=== PATIENT | male | born 1970 | race Two or more races ===

== ENCOUNTER 2017-01-03 11:49 | Day surgery (SDC) | payer OTHER ==
[2017-01-01 12:43] VITALS: BMI 30.1
[2017-01-03 13:03] VITALS: TEMP 98
[2017-01-03] MEDS ORDERED: PROPOFOL 20 ML ONE (14:49)
[2017-01-03] MEDS ORDERED: LIDOCAINE HCL/PF 2% SDV 5ML VIAL ONE (14:49)
[2017-01-03] MEDS ORDERED: MIDAZOLAM HCL 2 MG/2 ML SINGLE DOSE VIAL ONE (14:49)
[2017-01-03] MEDS ORDERED: LEVOFLOXACIN 500 MG IVPB 100 ML IVPB ONE (14:54)
[2017-01-03] MEDS ORDERED: LEVOFLOXACIN 500 MG PREMIX BAG IVPB ONE (14:55)
[2017-01-03] MEDS ORDERED: ONDANSETRON 4 MG/2 ML VIAL IVPUSH PRN (15:15)
[2017-01-03] MEDS ORDERED: LACTATED RINGERS SOLUTION 1,000 ML IV SCH (15:15)
[2017-01-03] MEDS ORDERED: oxyCODONE HCL 5 MG TABLET PO PRN (15:15)
--- NOTE | 2017-01-03 15:42 | OP ---
Operative Note - Note: Operative Date: 01/03/17 Pre-Operative Diagnosis: Urethral Stricture Operation: Cysto internal urethrotomy ,cystogram and gage catheterization Findings: Severe urethral stricture Post-Operative Diagnosis: Same as Pre-op Surgeon: Elayne Fowler Anesthesia: General Drains & Tubes with Location: 18 F Gage Catheter
[2017-01-03] MEDS ORDERED: oxyCODONE HCL 5 MG TABLET ONE (17:12)
[2017-01-03 17:49] VITALS: BP 125/79; PULSE 72
--- NOTE | 2017-01-04 12:16 | OP ---
DATE OF OPERATION: 01/03/2017 SURGEON: Elayne oFwler MD ANESTHESIA: General. PREOPERATIVE DIAGNOSIS: Urethral stricture. POSTOPERATIVE DIAGNOSIS: Urethral stricture. PROCEDURE: Cystoscopy, internal urethrotomy, urethral dilatation, cystogram, and Plasencia catheterization. FINDINGS: Severe stricture of the anterior urethra noted. Bladder essentially normal. DESCRIPTION OF PROCEDURE: Patient in lithotomy position under anesthesia, was prepped and draped in the usual manner. Using a 22 scope, cystoscopy was attempted, but because of the severity of the stricture, could not be performed. Then with considerable difficulty, a guidewire was placed, passed the stricture into the bladder. This was confirmed with x-ray. The urethrotome was used, and stricture was cut using the blade over the guidewire, and finally the urethrotome was introduced into the bladder. Then the instrument was removed. Using the Penny catheter, the stricture was dilated up to 22-[place] in size. Then again with considerable difficulty, an 18 Plasencia was left indwelling. The position was confirmed with x-ray. The patient tolerated the procedure well and left the operating room in a satisfactory condition. ELAYNE FOWLER M.D. [id number]
== END 2017-01-03 17:49 | disposition home or self-care (01) ==
LOC: JASU-SURG 11:49
PROVIDERS: ATTEND Urology
PROC: BT1BZZZ Fluoroscopy of Bladder and Urethra (ICD-10-PCS; 2017-01-03)
PROC: 0T7D8ZZ Dilation of Urethra, Via Natural or Artificial Opening Endoscopic (ICD-10-PCS; 2017-01-03)
PROC: 0TND8ZZ Release Urethra, Via Natural or Artificial Opening Endoscopic (ICD-10-PCS; principal; 2017-01-03 14:00)
DX: N35.9 Urethral stricture, unspecified (principal)
CPT/HCPCS: 76000-TC; 94760

== ENCOUNTER 2019-03-31 10:38 | Inpatient (IN) | payer OTHER ==
[2019-03-28 09:46] VITALS: BMI 24.7
[2019-03-31] MEDS ORDERED: PROPOFOL 20 ML ONE ×3 (11:00→14:07)
[2019-03-31] MEDS ORDERED: MIDAZOLAM HCL 2 MG/2 ML SINGLE DOSE VIAL ONE ×2 (11:00→13:50)
[2019-03-31] MEDS ORDERED: LIDOCAINE HCL 2% JELLY 10 ML CARTRIDGE ONE (12:35)
[2019-03-31] MEDS ORDERED: LIDOCAINE HCL/PF 2% SDV 5ML VIAL ONE (13:50)
[2019-03-31] MEDS ORDERED: CLINDAMYCIN 600 MG PREMIX BAG IVPB ONE (14:08)
[2019-03-31] MEDS ORDERED: KETOROLAC TROMETHAMINE 30 MG/1 ML VIAL ONE (14:16)
[2019-03-31] MEDS ORDERED: IOHEXOL 300 MG/ML INFUS..BTL IJ ONE ×2 (14:45→14:48)
[2019-03-31] MEDS: DEXTROSE 5%-0.45% SALINE 1,000 ML IV SCH ×2 (15:10→16:55)
[2019-03-31] MEDS ORDERED: ONDANSETRON 4 MG/2 ML VIAL IVPUSH PRN (15:35)
[2019-03-31] MEDS ORDERED: ACETAMINOPHEN 1000 MG/100 ML VIAL (NON FORMULARY) IVPB ONE (16:00)
[2019-03-31] MEDS ORDERED: HYDROmorphone HCl 2 MG/ML VIAL IVPUSH ONE (16:00)
[2019-03-31] MEDS ORDERED: HYDROmorphone HCl 2 MG/ML VIAL ONE (16:02)
[2019-03-31] MEDS ORDERED: ALBUTEROL SO4 8 GM HFA INHALER IH PRN (16:06)
--- NOTE | 2019-03-31 16:06 | OP ---
Operative Note - Note: Operative Date: 03/31/19 Pre-Operative Diagnosis: Urethral stricture Operation: Cysto, Urethrogram Attempted urethrotomy Findings: Severe Posterior Urethral Stricture Post-Operative Diagnosis: Same as Pre-op Surgeon: Elayne Fowler Anesthesia: General Operative Report Dictated: Yes
[2019-03-31] MEDS ORDERED: ACETAMINOPHEN INJECTION 100 ML IVPB ONE (16:19)
--- NOTE | 2019-03-31 19:16 | OP ---
DATE OF OPERATION: 03/31/2019 SURGEON: Elayne Fowler MD ANESTHESIA: General. PREOPERATIVE DIAGNOSIS: Urethral stricture. POSTOPERATIVE DIAGNOSIS: Urethral stricture. PROCEDURE: Cystoscopy, urethrogram, and attempted urethrotomy. FINDINGS: Severe urethral stricture noted in the posterior urethra. Urethrogram showed a very extremely thin area and possible diverticulum and collection of contrast noted in the posterior urethra. Bladder did not fill properly. DESCRIPTION OF PROCEDURE: Patient in lithotomy position under anesthesia was prepped and draped in the usual manner. Using 21 [place] urethrotome, cystoscopy was attempted. Because of the severeness of the stricture, even using guidewire to bypass it was not successful. Then urethrogram was performed, and again, it was not successful. The urethra was not well delineated at all, so at this point, the procedure was terminated, and the patient left the operating room under satisfactory condition. ELAYNE FOWLER M.D. [id number]
[2019-03-31] MEDS: HYDROmorphone HCl 2 MG/ML VIAL IM PRN (20:53)
[2019-03-31] MEDS: GABAPENTIN 400 MG CAPSULE (FP) PO SCH (20:59)
[2019-03-31] MEDS ORDERED: ATORVASTATIN CA 40 MG TABLET (FP) PO SCH (22:00)
[2019-03-31] MEDS: CLINDAMYCIN 300 MG PREMIX IVPB 300 MG/50 ML BAG IVPB SCH (22:04)
[2019-03-31] MEDS: oxyCODONE HCL 5 MG TABLET PO PRN (23:26)
[2019-03-31] MEDS: ACETAMINOPHEN 325 MG TABLET (FP) PO PRN (23:27)
[2019-04-01] MEDS: HYDROmorphone HCl 2 MG/ML VIAL IM PRN ×2 (01:00→14:35)
[2019-04-01] MEDS: ACETAMINOPHEN 325 MG TABLET (FP) PO PRN (04:19)
[2019-04-01] MEDS: CLINDAMYCIN 300 MG PREMIX IVPB 300 MG/50 ML BAG IVPB SCH (05:04)
[2019-04-01] MEDS: GABAPENTIN 400 MG CAPSULE (FP) PO SCH ×2 (06:28→21:19)
[2019-04-01] MEDS: oxyCODONE HCL 5 MG TABLET PO PRN ×3 (06:31→21:21)
[2019-04-01] MEDS ORDERED: glipiZIDE 5 MG TABLET (FP) PO SCH (07:00)
[2019-04-01] MEDS ORDERED: ACETAMINOPHEN 1000 MG/100 ML VIAL (NON FORMULARY) IVPB PRN ×2 (10:05→15:16)
--- NOTE | 2019-04-01 10:45 | CONSULT ---
Consultation: REQUESTING PROVIDER: Dr. Maricel Fry CONSULT REQUEST: We have been asked to medically evaluate this patient for fever. HISTORY OF PRESENT ILLNESS: 48M w/ pmhx of DM, urethral stricture (s/p multiple cystocopies) presents in the hospital s/p cystoscopy on 03/31/19. Per urology request, we have been consulted to evaluate patient for fevers. Blood/urine culture were drawn and currently pending. Upon interview, pt stated he urinated this morning with less pain, but still with blood-tinged urine. Soon after urinating, he reported feeling febrile and complained of chills. States his pain had gotten better. Denies REVIEW OF SYSTEMS: CONSTITUTIONAL: +fever, chills Absent: diaphoresis, generalized weakness, malaise, loss of appetite, weight change HEENT: Absent: rhinorrhea, nasal congestion, throat pain, throat swelling, difficulty swallowing, mouth swelling, ear pain, eye pain, visual changes CARDIOVASCULAR: Absent: chest pain, syncope, palpitations, irregular heart rate, lightheadedness , peripheral edema RESPIRATORY: Absent: cough, shortness of breath, dyspnea with exertion, orthopnea, wheezing, stridor, hemoptysis GASTROINTESTINAL: Absent: abdominal pain, abdominal distension, nausea, vomiting, diarrhea, constipation, melena, hematochezia GENITOURINARY: +hematuria Absent: dysuria, frequency, urgency, hesitancy, , flank pain, genital pain MUSCULOSKELETAL: Absent: myalgia, arthralgia, joint swelling, back pain, neck pain SKIN: Absent: rash, itching, pallor NEUROLOGIC: Absent: headache, focal weakness or paresthesias, dizziness, unsteady gait, seizure, mental status changes, bladder or bowel incontinence PHYSICAL EXAMINATION Vital Signs - 24 hr 03/31/19 03/31/19 03/31/19 11:27 11:29 11:30 Temperature 98.2 F 98.2 F Pulse Rate 69 69 Respiratory 20 20 Rate Blood Pressure 122/74 122/74 O2 Sat by Pulse 98 Oximetry (%) 03/31/19 03/31/19 03/31/19 15:24 15:40 15:55 Temperature 97.8 F Pulse Rate 98 H 89 88 Respiratory 16 18 18 Rate Blood Pressure 128/86 1118/84 H 127/87 O2 Sat by Pulse 96 96 99 Oximetry (%) 03/31/19 03/31/19 03/31/19 16:10 16:25 16:40 Temperature Pulse Rate 79 80 81 Respiratory 18 18 18 Rate Blood Pressure 132/83 127/87 122/83 O2 Sat by Pulse 97 98 96 Oximetry (%) 03/31/19 03/31/19 03/31/19 16:55 18:30 21:00 Temperature 97.9 F 97.6 F Pulse Rate 78 74 Respiratory 18 19 Rate Blood Pressure 126/81 135/83 O2 Sat by Pulse 98 97 98 Oximetry (%) 03/31/19 04/01/19 04/01/19 22:00 04:15 06:00 Temperature 98.5 F 102.7 F H 99.9 F H Pulse Rate 77 Respiratory 18 Rate Blood Pressure 138/79 O2 Sat by Pulse Oximetry (%) 04/01/19 04/01/19 06:45 09:00 Temperature 99.4 F Pulse Rate 81 Respiratory 22 H 20 Rate Blood Pressure 146/93 O2 Sat by Pulse 98 Oximetry (%) GENERAL: AAOx3. Seen shivering, but answers questions appropriately. HEENT: AT/NC. EOMI. MMM. CV: RRR. Normal S1, S2. No murmurs noted Lung: CTA B/L. No wheezes, rales noted. Abd: Soft, NT/ND. Ext: No peripheral edema noted. Neuro: Normal speech. Laboratory Results - last 24 hr 03/31/19 11:15 POC Glucometer 232 Active Medications Generic Name Dose Route Start Last Admin Trade Name Freq PRN Reason Stop Dose Admin Acetaminophen 1,000 mg 04/01/19 10:05 Ofirmev Injection - IVPB Q6H PRN FEVER Albuterol Sulfate 2 puff 03/31/19 16:06 Ventolin Hfa Inhaler - IH Q4H PRN SHORT OF BREATH/WHEEZING Atorvastatin Calcium 40 mg 03/31/19 22:00 03/31/19 20:59 Lipitor - PO 40 mg HS PB Administration Gabapentin 800 mg 03/31/19 22:00 04/01/19 06:28 Neurontin - PO Not Given TID PB Glipizide 5 mg 04/01/19 07:00 04/01/19 06:08 Glucotrol - PO Not Given DAILY@0700 PB Hydromorphone HCl 2 mg 03/31/19 16:23 04/01/19 01:00 Dilaudid Vial - IM 04/01/19 16:22 2 mg Q4H PRN Administration PAIN LEVEL 6-10 Dextrose/Sodium Chloride 1,000 mls @ 100 mls/hr 03/31/19 16:00 03/31/19 16:55 D5-1/2ns - IV 0 mls ASDIR PB Administration Ondansetron HCl 4 mg 03/31/19 15:35 Zofran Injection IVPUSH Q6H PRN NAUSEA AND/OR VOMITING Oxycodone HCl 10 mg 03/31/19 16:31 04/01/19 06:31 Roxicodone - PO 04/01/19 16:30 10 mg Q4H PRN Administration PAIN LEVEL 6-10 ASSESSMENT/PLAN: 48M w/ pmhx of DM, urethral stricture (s/p multiple cystocopies) presents in the hospital s/p cystoscopy on 03/31/19 found to have fevers. #Sepsis; likely due to complicated UTI 2/2 significant hx of urethral stricture -Febrile 101.7, BP stable -Cont IVf -Pt scheduled to go to OR for suprapubic tube placement today -BCx/UCx pending -Lactate ordered -IV Tylenol for fever -Chelsy-op IV abx per uro -Pain control per uro #DM Cont home meds: Glipizide Dispo: We will continue to follow the patient. Thank you for this consultative opportunity. ATTENDING PHYSICIAN STATEMENT I saw and evaluated the patient. I reviewed the resident's note and discussed the case with the resident. I agree with the resident's findings and plan as documented. SUBJECTIVE: OBJECTIVE: ASSESSMENT AND PLAN:
[2019-04-01] MEDS ORDERED: MIDAZOLAM HCL 2 MG/2 ML SINGLE DOSE VIAL ONE (10:58)
[2019-04-01] MEDS ORDERED: PROPOFOL 20 ML ONE (10:58)
[2019-04-01] MEDS ORDERED: PHENYLEPHRINE HCL 10 MG/1 ML SINGLE DOSE VIAL ONE (11:29)
[2019-04-01] MEDS ORDERED: LACTATED RINGERS SOLUTION 1,000 ML IV SCH ×2 (12:00→15:16)
--- NOTE | 2019-04-01 12:53 | OP ---
Operative Note - Note: Operative Date: 04/01/19 Pre-Operative Diagnosis: Urethral Stricture, Urinary retention Operation: Cysto, attempted dilatation suprapubic cystostomy Findings: Severe posterior urethral stricture Post-Operative Diagnosis: Same as Pre-op Surgeon: Elayne Fowler Anesthesia: General Operative Report Dictated: Yes
--- NOTE | 2019-04-01 13:35 | CON.ID ---
Consult Consult Specialty:: infectious diseases Referred by:: dr bernard Reason for Consultation:: post op sepsis,hypotension,fever - History of Present Illness Chief Complaint: fever,weakness History of Present Illness: 48M w/ pmhx of DM, urethral stricture s/p cystoscopy today Of note, pt has significant hx of urinary retention and has been following uro as an outpatient for this issue regularly. post cystoscopy patient started spiking fever ,became hypotensive and lethargic.patient was given clinda currently in the pacu patient feels slight better patient feels very weak and feverish - History Source History Provided By: Patient, Medical Record Limitations to Obtaining History: Clinical Condition - Alcohol/Substance Use Hx Alcohol Use: No - Smoking History Smoking history: Current every day smoker Have you smoked in the past 12 months: Yes Aproximately how many cigarettes per day: 5 If you are a former smoker, when did you quit?: 5 Home Medications - Allergies Allergies/Adverse Reactions: Allergies Allergy/AdvReac Type Severity Reaction Status Date / Time strawberry Allergy Severe Hives Verified 03/31/19 11:36 tomato Allergy Severe Hives Verified 03/31/19 11:36 sulfamethoxazole Allergy Intermediate BLISTER Verified 03/31/19 11:36 amoxicillin Allergy Hives Verified 03/31/19 11:36 Penicillins Allergy Hives Verified 03/31/19 11:36 - Home Medications Home Medications: Ambulatory Orders Glipizide [Glucotrol -] 5 mg PO DAILY 12/04/16 Albuterol Sulfate Inhaler - [Ventolin Hfa Inhaler -] 2 inh PO Q4H PRN 01/01/17 Atorvastatin Ca [Lipitor] 40 mg PO HS 01/01/17 Gabapentin [Neurontin -] 800 mg PO TID 01/01/17 Albuterol 0.083% Nebulizer Kaya [Ventolin 0.083% Nebulizer Soln -] 1 puff IH PRN PRN 04/02/19 Sitagliptin Phosphate [Januvia] 100 mg PO DAILY 04/02/19 Varenicline Tartrate [Chantix] 1 tab PO DAILY 04/02/19 Review of Systems - Review of Systems Constitutional: reports: Chills, Fever Eyes: reports: No Symptoms HENT: reports: No Symptoms Neck: reports: No Symptoms Cardiovascular: reports: No Symptoms Respiratory: reports: No Symptoms Gastrointestinal: reports: No Symptoms Genitourinary: reports: No Symptoms Musculoskeletal: reports: No Symptoms Integumentary: reports: No Symptoms Neurological: reports: No Symptoms Endocrine: reports: No Symptoms Hematology/Lymphatic: reports: No Symptoms Psychiatric: reports: No Symptoms Physical Exam Vital Signs: Vital Signs Temperature 99.4 F 04/01/19 06:45 Pulse Rate 81 04/01/19 06:45 Respiratory Rate 20 04/01/19 09:00 Blood Pressure 146/93 04/01/19 06:45 O2 Sat by Pulse Oximetry (%) 98 04/01/19 09:00 Constitutional: Yes: Calm, Mild Distress, Other Eyes: Yes: Conjunctiva Clear Cardiovascular: Yes: Regular Rate and Rhythm Respiratory: Yes: Regular, CTA Bilaterally Gastrointestinal: Yes: Normal Bowel Sounds, Soft Renal/: Yes: Plasencia Present Musculoskeletal: Yes: WNL Extremities: Yes: WNL Neurological: Yes: Alert Psychiatric: Yes: Alert Assessment/Plan 48M w/ pmhx of DM, urethral stricture (s/p multiple cystocopies) presents in the hospital s/p cystoscopy on 03/31/19 found to have fevers. Sepsis uti audrey dm plan will start patient on jaime close watch icu if needed hydration blood cx urine cx rest as per the team
[2019-04-01 14:02] LABS: BASO % 0.5 % (0-2.0); EOS % 0.4 % (0-4.5); HEMATOCRIT 43.4 % (35.4-49); HEMOGLOBIN 14.7 GM/dL (11.7-16.9); LYMPH % 5.4 % (8-40); MCH 32.6 pg (25.7-33.7); MCHC 33.9 g/dl (32.0-35.9); MEAN PLT VOLUME 8.3 fl (7.5-11.1); MONO % 3.3 % (3.8-10.2); NEUT % 90.4 % (42.8-82.8); PLATELET COUNT 171 K/MM3 (134-434); RBC 4.52 M/mm3 (4.00-5.60); RDW 12.7 % (11.9-15.9); WHITE BLOOD COUNT 12.9 K/mm3 (4.0-10.0)
[2019-04-01 14:25] LABS: ALBUMIN 3.3 g/dl (3.4-5.0); BILIRUBIN,TOTAL 0.9 mg/dL (0.2-1); BLOOD UREA NITROGEN 19.2 mg/dL (7-18); CALCIUM 8.1 mg/dL (8.5-10.1); CREATININE 1.6 mg/dL (0.55-1.3); POTASSIUM 4.1 mmol/L (3.5-5.1); TOT PROT 7.2 g/dl (6.4-8.2)
[2019-04-01] MEDS ORDERED: HYDROmorphone HCl 2 MG/ML VIAL ONE (14:34)
--- NOTE | 2019-04-01 14:35 | OP ---
DATE OF OPERATION: 04/01/2019 SURGEON: Elayne Fowler MD ANESTHESIA: General. PREOPERATIVE DIAGNOSIS: Urethral stricture. POSTOPERATIVE DIAGNOSIS: Bladder neck contracture. PROCEDURE: Cystoscopy, attempted dilatation, and suprapubic cystostomy. FINDINGS: Severe posterior urethral stricture noted. DESCRIPTION OF PROCEDURE: Patient in lithotomy position under anesthesia was prepped and draped in the usual manner. An attempt was made to dilate the urethra. It was not successful. Then a small suprapubic incision was made and bladder was identified. A 20-mL balloon tube was inserted into the bladder, confirmed with irrigation. The wound was closed in layers. The patient tolerated the procedure well and left the operating room in a satisfactory condition. ELAYNE FOWLER M.D. [id number]
[2019-04-01] MEDS: MEROPENEM 1 GM in DEXTROSE 5%-WATER 100 ML IVPB SCH ×2 (14:40→18:23)
[2019-04-01] MEDS ORDERED: oxyCODONE HCL 5 MG TABLET PO PRN (15:16)
[2019-04-01] MEDS ORDERED: ALBUTEROL SO4 8 GM HFA INHALER IH PRN (15:16)
[2019-04-01] MEDS ORDERED: ONDANSETRON 4 MG/2 ML VIAL IVPUSH PRN (15:16)
[2019-04-01] MEDS ORDERED: HYDROmorphone HCl 2 MG/ML VIAL IM PRN (15:16)
[2019-04-01] MEDS ORDERED: DEXTROSE 5%-0.45% SALINE 1,000 ML IV SCH (15:16)
[2019-04-01] MEDS: SODIUM CHLORIDE 1,000 ML IV SCH (15:30)
--- NOTE | 2019-04-01 15:42 | HP ---
CHIEF COMPLAINT: fevers s/p cystoscopy Uro: Dr. Fowler HISTORY OF PRESENT ILLNESS: 48M w/ pmhx of DM, urethral stricture (s/p multiple cystocopies) presents in the hospital s/p cystoscopy on 03/31/19. Of note, pt has significant hx of urinary retention and has been following uro as an outpatient for this issue regularly. Pt admitted under medicine service for treatment of sepsis likely 2/ 2 UTI. Blood/urine culture were drawn and currently pending. Upon interview, pt stated he urinated this morning with less pain, but still with blood-tinged urine. Soon after urinating, he reported feeling febrile and complained of chills. States his pain had gotten better since cystoscopy. Denies pak/d, n/v, chest pain, sob, abd pain, bowel symptoms. Pt is scheduled to have suprapubic cystostomy done today by uro. Recent Travel: Denies PAST MEDICAL HISTORY: DM urethral stricture PAST SURGICAL HISTORY: multiple cystoscopies Social History: Smoking: Smoke 1 pack every 4 weeks for years Alcohol: Social drinker Drugs: Denies Allergies strawberry Allergy (Severe, Verified 03/31/19 11:36) Hives tomato Allergy (Severe, Verified 03/31/19 11:36) Hives sulfamethoxazole Allergy (Intermediate, Verified 03/31/19 11:36) BLISTER amoxicillin Allergy (Verified 03/31/19 11:36) Hives Penicillins Allergy (Verified 03/31/19 11:36) Hives HOME MEDICATIONS: Home Medications Medication Instructions Recorded Glipizide [Glucotrol -] 5 mg PO DAILY 12/04/16 Albuterol Sulfate Inhaler - 2 inh PO Q4H PRN 01/01/17 [Ventolin Hfa Inhaler -] Atorvastatin Ca [Lipitor] 40 mg PO HS 01/01/17 Gabapentin [Neurontin -] 800 mg PO TID 01/01/17 REVIEW OF SYSTEMS CONSTITUTIONAL: +fever, chills Absent: diaphoresis, generalized weakness, malaise, loss of appetite, weight change HEENT: Absent: rhinorrhea, nasal congestion, throat pain, throat swelling, difficulty swallowing, mouth swelling, ear pain, eye pain, visual changes CARDIOVASCULAR: Absent: chest pain, syncope, palpitations, irregular heart rate, lightheadedness , peripheral edema RESPIRATORY: Absent: cough, shortness of breath, dyspnea with exertion, orthopnea, wheezing, stridor, hemoptysis GASTROINTESTINAL: Absent: abdominal pain, abdominal distension, nausea, vomiting, diarrhea, constipation, melena, hematochezia GENITOURINARY: +hematuria Absent: dysuria, frequency, urgency, hesitancy, hematuria, flank pain, genital pain MUSCULOSKELETAL: Absent: myalgia, arthralgia, joint swelling, back pain, neck pain SKIN: Absent: rash, itching, pallor NEUROLOGIC: Absent: headache, focal weakness or paresthesias, dizziness, unsteady gait, seizure, mental status changes, bladder or bowel incontinence PHYSICAL EXAMINATION Vital Signs - 24 hr 03/31/19 03/31/19 03/31/19 15:40 15:55 16:10 Temperature Pulse Rate 89 88 79 Respiratory 18 18 18 Rate Blood Pressure 1118/84 H 127/87 132/83 O2 Sat by Pulse 96 99 97 Oximetry (%) 03/31/19 03/31/19 03/31/19 16:25 16:40 16:55 Temperature 97.9 F Pulse Rate 80 81 78 Respiratory 18 18 18 Rate Blood Pressure 127/87 122/83 126/81 O2 Sat by Pulse 98 96 98 Oximetry (%) 03/31/19 03/31/19 03/31/19 18:30 21:00 22:00 Temperature 97.6 F 98.5 F Pulse Rate 74 77 Respiratory 19 18 Rate Blood Pressure 135/83 138/79 O2 Sat by Pulse 97 98 Oximetry (%) 04/01/19 04/01/19 04/01/19 04:15 06:00 06:45 Temperature 102.7 F H 99.9 F H 99.4 F Pulse Rate 81 Respiratory 22 H Rate Blood Pressure 146/93 O2 Sat by Pulse Oximetry (%) 04/01/19 09:00 Temperature Pulse Rate Respiratory 20 Rate Blood Pressure O2 Sat by Pulse 98 Oximetry (%) GENERAL: AAOx3. Seen shivering, but answers questions appropriately. HEENT: AT/NC. EOMI. MMM. CV: RRR. Normal S1, S2. No murmurs noted Lung: CTA B/L. No wheezes, rales noted. Abd: Soft, NT/ND. Ext: No peripheral edema noted. Neuro: Normal speech. Gait not observed. Laboratory Results - last 24 hr 1004/01/19 04/01/19 13:10 13:10 13:30 WBC 12.9 H RBC 4.52 Hgb 14.7 Hct 43.4 MCV 96.0 MCH 32.6 MCHC 33.9 RDW 12.7 Plt Count 171 D MPV 8.3 Absolute Neuts (auto) 11.7 H Neutrophils % 90.4 H Lymphocytes % 5.4 L D Monocytes % 3.3 L Eosinophils % 0.4 D Basophils % 0.5 Nucleated RBC % 0 Sodium 137 Potassium 4.1 Chloride 102 Carbon Dioxide 25 Anion Gap 9 BUN 19.2 H Creatinine 1.6 H Est GFR (CKD-EPI)AfAm 57.37 Est GFR (CKD-EPI)NonAf 49.50 POC Glucometer Random Glucose 155 H Lactic Acid 4.2 H* Calcium 8.1 L Total Bilirubin 0.9 AST 30 ALT 24 Alkaline Phosphatase 113 Total Protein 7.2 Albumin 3.3 L 04/01/19 14:09 WBC RBC Hgb Hct MCV MCH MCHC RDW Plt Count MPV Absolute Neuts (auto) Neutrophils % Lymphocytes % Monocytes % Eosinophils % Basophils % Nucleated RBC % Sodium Potassium Chloride Carbon Dioxide Anion Gap BUN Creatinine Est GFR (CKD-EPI)AfAm Est GFR (CKD-EPI)NonAf POC Glucometer 178 Random Glucose Lactic Acid Calcium Total Bilirubin AST ALT Alkaline Phosphatase Total Protein Albumin ASSESSMENT/PLAN: 48M w/ pmhx of DM, urethral stricture (s/p multiple cystocopies) presents in the hospital s/p cystoscopy on 03/31/19 found to have fevers. #Sepsis; likely due to complicated UTI 2/2 significant hx of urethral stricture -Febrile 101.7, WBC 12.9, HR 110s, BP stable -Cont IVf -Pt scheduled to go to OR for suprapubic cystostomy today -BCx/UCx pending -Lactate ordered -IV Tylenol for fever -Chelsy-op IV abx per uro -Pain control per uro #DUY; likely 2/2 obstructive uropathy -cont IVf -recheck Cr in AM -avoid nephrotoxic meds #DM Cont home meds: Glipizide #Prophylaxis -early ambulation/SCDs Dispo -admit to med-surg Visit type - Emergency Visit Emergency Visit: No - New Patient This patient is new to me today: Yes Date on this admission: 04/01/19 - Critical Care Critical Care patient: No ATTENDING PHYSICIAN STATEMENT I saw and evaluated the patient. I reviewed the resident's note and discussed the case with the resident. I agree with the resident's findings and plan as documented. SUBJECTIVE: OBJECTIVE: ASSESSMENT AND PLAN:
[2019-04-01] MEDS ORDERED: DEXTROSE 5%-WATER 100 ML IVPB ONE (18:15)
[2019-04-01] MEDS ORDERED: MEROPENEM 1 GM VIAL (RESTRICTED TO ID) IVPB ONE (18:15)
[2019-04-01] MEDS ORDERED: SODIUM CHLORIDE 1,000 ML IV STA (18:32)
--- NOTE | 2019-04-01 18:33 | PN ---
Teaching Attending Note Name of Resident: Meena Lee ATTENDING PHYSICIAN STATEMENT I saw and evaluated the patient. I reviewed the resident's note and discussed the case with the resident. I agree with the resident's findings and plan as documented. SUBJECTIVE: complains of discomfort s/p suprapubic catheter placement. Fever +. No nausea/vomiting/diarrhea. OBJECTIVE: Febrile, Hemodynamicaly Stable. Last Vital Signs Temp Pulse Resp BP Pulse Ox 99.8 F H 112 H 19 135/79 97 04/01/19 18:02 04/01/19 18:02 04/01/19 18:02 04/01/19 18:02 04/01/19 18:02 HEENT - Diaphoretic, normocephalic, atraumatic. HEART - S1, S2, RRR LUNGS - clear to auscultation ABDOMEN - Tender LQs. Soft, Bowel Sounds normal. Suprapubic catheter insertion site dressed. EXTREMITIES - No edema, no calf tenderness. Laboratory Results - last 24 hr 04/01/19 04/01/19 04/01/19 13:10 13:10 13:30 WBC 12.9 H RBC 4.52 Hgb 14.7 Hct 43.4 MCV 96.0 MCH 32.6 MCHC 33.9 RDW 12.7 Plt Count 171 D MPV 8.3 Absolute Neuts (auto) 11.7 H Neutrophils % 90.4 H Lymphocytes % 5.4 L D Monocytes % 3.3 L Eosinophils % 0.4 D Basophils % 0.5 Nucleated RBC % 0 Sodium 137 Potassium 4.1 Chloride 102 Carbon Dioxide 25 Anion Gap 9 BUN 19.2 H Creatinine 1.6 H Est GFR (CKD-EPI)AfAm 57.37 Est GFR (CKD-EPI)NonAf 49.50 POC Glucometer Random Glucose 155 H Lactic Acid 4.2 H* Calcium 8.1 L Total Bilirubin 0.9 AST 30 ALT 24 Alkaline Phosphatase 113 Total Protein 7.2 Albumin 3.3 L 04/01/19 14:09 WBC RBC Hgb Hct MCV MCH MCHC RDW Plt Count MPV Absolute Neuts (auto) Neutrophils % Lymphocytes % Monocytes % Eosinophils % Basophils % Nucleated RBC % Sodium Potassium Chloride Carbon Dioxide Anion Gap BUN Creatinine Est GFR (CKD-EPI)AfAm Est GFR (CKD-EPI)NonAf POC Glucometer 178 Random Glucose Lactic Acid Calcium Total Bilirubin AST ALT Alkaline Phosphatase Total Protein Albumin Current Medications Generic Name Dose Route Start Last Admin Trade Name Freq PRN Reason Stop Dose Admin Acetaminophen 1,000 mg 04/01/19 15:16 04/01/19 16:30 Ofirmev Injection - IVPB 1,000 mg Q6H PRN Administration FEVER Albuterol Sulfate 2 puff 04/01/19 15:16 Ventolin Hfa Inhaler - IH Q4H PRN SHORT OF BREATH/WHEEZING Atorvastatin Calcium 40 mg 04/01/19 22:00 Lipitor - PO HS PB Fentanyl 50 mcg 04/01/19 15:16 Sublimaze Injection - IVPUSH [id number] PRN PAIN-PACU ORDER X 4 DOSES ONLY Gabapentin 800 mg 04/01/19 22:00 Neurontin - PO TID PB Meropenem 1 gm/ Dextrose 100 mls @ 200 mls/hr 04/01/19 13:45 04/01/19 18:23 IVPB 200 mls/hr Q8H-IV PB Administration Sodium Chloride 1,000 mls @ 100 mls/hr 04/01/19 15:30 04/01/19 15:30 Normal Saline - IV 0 mls ASDIR PB Administration Sodium Chloride 1,000 mls @ 1,000 mls/hr 04/01/19 18:32 Normal Saline - IV 04/01/19 19:31 ASDIR STA Insulin Aspart 1 vial 04/01/19 22:00 Novolog Vial Sliding Scale - SQ ACHS PB Protocol Ondansetron HCl 4 mg 04/01/19 15:16 Zofran Injection IVPUSH Q6H PRN NAUSEA AND/OR VOMITING Home Medications Medication Instructions Recorded Glipizide [Glucotrol -] 5 mg PO DAILY 12/04/16 Albuterol Sulfate Inhaler - 2 inh PO Q4H PRN 01/01/17 [Ventolin Hfa Inhaler -] Atorvastatin Ca [Lipitor] 40 mg PO HS 01/01/17 Gabapentin [Neurontin -] 800 mg PO TID 01/01/17 ASSESSMENT AND PLAN: 48 year old male with history of DM 2, HLD, Hx Urethral stricture (s/p multiple cystocopies and dilatations) admitted to medicine service with severe sepsis s/ p cystoscopy, attempted stricture dilatation, with conversion to suprapubic cystostomy. 1. Severe Sepsis secondary to complicated UTI with Urethral Stricture s/p suprapubic cystostomy after failed stricture dilatation on cystoscopy Fevers, diaphoresis, tachycardia. Elevated Lactate. Blood/Urine Cx pending. IV hydration Meropenem as per ID. 2. DUY, likely sec to obstructive uropathy and sepsis Monitor renal function in response to IV hydration 3. DM 2 - maintain on insulin sliding scale. Glipizide held. 4. HLD - on Statin. DVT Px - Heparin SQ
[2019-04-01] MEDS: ATORVASTATIN CA 40 MG TABLET (FP) PO SCH (21:19)
[2019-04-01] MEDS ORDERED: ACETAMINOPHEN 325 MG TABLET (FP) PO PRN (21:26)
[2019-04-02] MEDS ORDERED: DEXTROSE 5%-WATER 100 ML IVPB ONE ×3 (00:48→16:17)
[2019-04-02] MEDS ORDERED: MEROPENEM 1 GM VIAL (RESTRICTED TO ID) IVPB ONE ×3 (00:48→16:17)
[2019-04-02] MEDS: MEROPENEM 1 GM in DEXTROSE 5%-WATER 100 ML IVPB SCH ×3 (01:07→17:32)
[2019-04-02] MEDS: oxyCODONE HCL 5 MG TABLET PO PRN ×4 (01:50→20:02)
[2019-04-02] MEDS: SODIUM CHLORIDE 1,000 ML IV SCH ×2 (01:51→13:50)
[2019-04-02] MEDS: ACETAMINOPHEN 325 MG TABLET (FP) PO PRN ×3 (04:00→16:21)
[2019-04-02] MEDS: GABAPENTIN 400 MG CAPSULE (FP) PO SCH ×3 (06:22→20:59)
[2019-04-02] MEDS ORDERED: glipiZIDE 5 MG TABLET (FP) PO SCH (07:00)
[2019-04-02 07:53] LABS: BASO % 0.8 % (0-2.0); HEMOGLOBIN 12.8 GM/dL (11.7-16.9); MCH 32.4 pg (25.7-33.7); MCHC 34.5 g/dl (32.0-35.9); MEAN CELL VOLUME 93.7 fl (80-96); MONO % 3.1 % (3.8-10.2); NEUT % 90.1 % (42.8-82.8); PLATELET COUNT 102 K/MM3 (134-434); RBC 3.94 M/mm3 (4.00-5.60); RDW 12.6 % (11.9-15.9); WHITE BLOOD COUNT 11.2 K/mm3 (4.0-10.0)
--- NOTE | 2019-04-02 08:08 | PN ---
Progress Note (short form) - Note Progress Note: Anesthesia post op Pt seen and examined S:Alert and awake talking on the phone O: Vital Signs Temperature 101.0 F H 04/02/19 05:56 Pulse Rate 107 H 04/02/19 05:56 Respiratory Rate 20 04/02/19 05:56 Blood Pressure 135/87 04/02/19 05:56 O2 Sat by Pulse Oximetry (%) 98 04/01/19 21:00 A/P; s/p supra pubic tube placement Febrile c/o mild incision pain No apparent anesthesia related complications Continue current care Filipe Walker M.D.
[2019-04-02 08:17] LABS: ALBUMIN 2.5 g/dl (3.4-5.0); BILIRUBIN,TOTAL 1.7 mg/dL (0.2-1); BLOOD UREA NITROGEN 15.2 mg/dL (7-18); CALCIUM 7.3 mg/dL (8.5-10.1); CREATININE 1.4 mg/dL (0.55-1.3); POTASSIUM 3.3 mmol/L (3.5-5.1); TOT PROT 5.5 g/dl (6.4-8.2)
[2019-04-02] MEDS: POTASSIUM CHLORIDE TABS 20 MEQ TABLET.ER (FP) PO SCH ×2 (09:34→13:50)
[2019-04-02] MEDS ORDERED: IBUPROFEN 400 MG TABLET (FP) PO ONE (10:49)
--- NOTE | 2019-04-02 11:03 | PN ---
Progress Note (short form) - Note Progress Note: Post Op Day 1 Pt is resting, VS stable. Urine out put adequate. Temp 101 to 102*F, abd is soft. Pt. is c/o severe pain in the lower abdomen. Scrotum is not edematous. Sub scrotally, no evidence of any collection. Blood cultures are negative. Dr. Sheppard 's consult appreciated. Discussed the case with Dr. Childs. Will do Ct scan of abd and pelvis to r/o any collection. will follow.
--- NOTE | 2019-04-02 11:58 | PN ---
Progress Note, Physician History of Present Illness: patient continues to spike fever wbc has come down abd pain and suprapubic pain - Current Medication List Current Medications: Active Medications Acetaminophen (Tylenol -) 650 mg PO Q4H PRN PRN Reason: FEVER OR PAIN 1-5 Last Admin: 04/02/19 09:24 Dose: 650 mg Albuterol Sulfate (Ventolin Hfa Inhaler -) 2 puff IH Q4H PRN PRN Reason: SHORT OF BREATH/WHEEZING Atorvastatin Calcium (Lipitor -) 40 mg PO HS PB Last Admin: 04/01/19 21:19 Dose: 40 mg Fentanyl (Sublimaze Injection -) 50 mcg IVPUSH [id number] PRN PRN Reason: PAIN-PACU ORDER X 4 DOSES ONLY Gabapentin (Neurontin -) 800 mg PO TID [facility] Last Admin: 04/02/19 06:22 Dose: 800 mg Meropenem 1 gm/ Dextrose 100 mls @ 200 mls/hr IVPB Q8H-IV PB Last Admin: 04/02/19 09:24 Dose: 200 mls/hr Sodium Chloride (Normal Saline -) 1,000 mls @ 125 mls/hr IV ASDIR PB Insulin Aspart (Novolog Vial Sliding Scale -) 1 vial SQ ACHS [facility]; Protocol Ondansetron HCl (Zofran Injection) 4 mg IVPUSH Q6H PRN PRN Reason: NAUSEA AND/OR VOMITING Oxycodone HCl (Roxicodone -) 10 mg PO Q4H PRN PRN Reason: PAIN 6-10 Last Admin: 04/02/19 09:25 Dose: 10 mg Potassium Chloride (K-Dur -) 40 meq PO Q4H [facility] Stop: 04/02/19 13:16 Last Admin: 04/02/19 09:34 Dose: 40 meq - Objective Vital Signs: Vital Signs Temperature 102.9 F H 04/02/19 10:52 Pulse Rate 100 H 04/02/19 08:00 Respiratory Rate 20 04/02/19 09:00 Blood Pressure 107/65 04/02/19 08:00 O2 Sat by Pulse Oximetry (%) 98 04/02/19 09:00 Constitutional: Yes: Calm, Mild Distress Cardiovascular: Yes: S1, S2 Respiratory: Yes: Regular, CTA Bilaterally Gastrointestinal: Yes: Normal Bowel Sounds, Soft Musculoskeletal: Yes: WNL Extremities: Yes: Other Neurological: Yes: Alert, Oriented Psychiatric: Yes: Alert, Oriented Labs: CBC, BMP 04/02/19 06:55 04/02/19 06:55 Assessment/Plan 48M w/ pmhx of DM, urethral stricture (s/p multiple cystocopies) presents in the hospital s/p cystoscopy on 03/31/19 found to have fevers. Sepsis uti audrey dm plan continue abx pls do a ct of the abd pelvis npo hydration close watch monitor fevers rest as per the team
--- NOTE | 2019-04-02 14:59 | PN ---
Physical Exam: SUBJECTIVE: Patient seen and examined. Endorses abdominal pain and feels feverish. OBJECTIVE: Vital Signs Period Temp Pulse Resp BP Sys/Dye Pulse Ox Last 24 Hr 98.7 F-103.2 F 90-112 14-20 97-135/53-87 97-98 GENERAL: The patient is awake, alert, and fully oriented. Appears to be in moderate pain. Diaphoretic. HEAD: Normal with no signs of trauma. EYES: PERRL, extraocular movements intact, sclera anicteric, conjunctiva clear. No ptosis. ENT: Ears normal, nares patent, oropharynx clear without exudates, moist mucous membranes. NECK: Trachea midline, full range of motion, supple. LUNGS: Breath sounds equal, clear to auscultation bilaterally, no wheezes, no crackles, no accessory muscle use. HEART: Tachycardic, S1, S2 without murmur, rub or gallop. ABDOMEN: Tenderness and guarding in lower abdomen and suprapubic region. Dressing in place over surgical wounds. No purulent discharge or bleeding. EXTREMITIES: 2+ pulses, warm, well-perfused, no edema. NEUROLOGICAL: Cranial nerves II through XII grossly intact. Normal speech, gait not observed. PSYCH: Normal mood, normal affect. SKIN: Warm, dry, normal turgor, no rashes or lesions noted. Laboratory Results - last 24 hr CBC, BMP 04/02/19 06:55 04/02/19 06:55 Active Medications Acetaminophen (Tylenol -) 650 mg PO Q4H PRN PRN Reason: FEVER OR PAIN 1-5 Last Admin: 04/02/19 09:24 Dose: 650 mg Albuterol Sulfate (Ventolin Hfa Inhaler -) 2 puff IH Q4H PRN PRN Reason: SHORT OF BREATH/WHEEZING Atorvastatin Calcium (Lipitor -) 40 mg PO HS PB Last Admin: 04/01/19 21:19 Dose: 40 mg Fentanyl (Sublimaze Injection -) 50 mcg IVPUSH [id number] PRN PRN Reason: PAIN-PACU ORDER X 4 DOSES ONLY Gabapentin (Neurontin -) 800 mg PO TID PB Last Admin: 04/02/19 13:50 Dose: 800 mg Meropenem 1 gm/ Dextrose 100 mls @ 200 mls/hr IVPB Q8H-IV PB Last Admin: 04/02/19 09:24 Dose: 200 mls/hr Sodium Chloride (Normal Saline -) 1,000 mls @ 125 mls/hr IV ASDIR PB Last Admin: 04/02/19 13:50 Dose: 125 mls/hr Insulin Aspart (Novolog Vial Sliding Scale -) 1 vial SQ ACHS [facility]; Protocol Ondansetron HCl (Zofran Injection) 4 mg IVPUSH Q6H PRN PRN Reason: NAUSEA AND/OR VOMITING Oxycodone HCl (Roxicodone -) 10 mg PO Q4H PRN PRN Reason: PAIN 6-10 Last Admin: 04/02/19 13:50 Dose: 10 mg ASSESSMENT/PLAN: 48M w/ pmhx of DM, urethral stricture (s/p multiple cystocopies) presents in the hospital s/p cystoscopy on 03/31/19 and suprapubic cystotomy on 04/01/19 found to have fevers and abdominal pain. #Sepsis; likely due to complicated UTI 2/2 significant hx of urethral stricture CTAP: No fluid collection suspicious of abscess or hematoma Fever improving with IV tylenol and iburprofen Lactate improved 4.5 --> 1.4 Leukocytosis 11.2 F/u blood and urine cx Cont meropenem 1gm Q8H per ID Cont IVF NS @ 125 ml/hr Pain control per urology #DUY; likely 2/2 obstructive uropathy Cr improving 1.6 --> 1.4 Cont IVF NS @ 125ml/hr Avoid nephrotoxic medications #DM Pt on glipizide 5mg po daily at home SSI during admission #FEN IVF NS @ 125 ml/hr Regular diet #DVT ppx SCDs and early ambulation #Dispo Monitor on med-surg Visit type - Emergency Visit Emergency Visit: No - New Patient This patient is new to me today: Yes Date on this admission: 04/02/19 - Critical Care Critical Care patient: No ATTENDING PHYSICIAN STATEMENT I saw and evaluated the patient. I reviewed the resident's note and discussed the case with the resident. I agree with the resident's findings and plan as documented. SUBJECTIVE: OBJECTIVE: ASSESSMENT AND PLAN:
--- NOTE | 2019-04-02 16:42 | PN ---
Teaching Attending Note Name of Resident: Lauren Casper ATTENDING PHYSICIAN STATEMENT I saw and evaluated the patient. I reviewed the resident's note and discussed the case with the resident. I agree with the resident's findings and plan as documented. SUBJECTIVE: Complains of ongoing severe abdominal discomfort s/p suprapubic catheter placement. Fever +. No nausea/vomiting/diarrhea. OBJECTIVE: Febrile, Diaphoretic. T max 103.2. Hemodynamicaly Stable. In discomfort. Last Vital Signs Temp Pulse Resp BP Pulse Ox 98.5 F 85 20 114/61 98 04/02/19 14:51 04/02/19 14:51 04/02/19 14:51 04/02/19 14:51 04/02/19 09:00 HEENT - Diaphoretic, normocephalic, atraumatic. HEART - S1, S2, RRR LUNGS - clear to auscultation ABDOMEN - Tender LQs. Soft, Bowel Sounds normal. Suprapubic catheter insertion site dressed. EXTREMITIES - No edema, no calf tenderness. Laboratory Results - last 24 hr 04/01/19 04/02/19 04/02/19 17:35 06:55 06:55 WBC 11.2 H RBC 3.94 L Hgb 12.8 Hct 37.0 MCV 93.7 MCH 32.4 MCHC 34.5 RDW 12.6 Plt Count 102 L D MPV 8.0 Absolute Neuts (auto) 10.1 H Neutrophils % 90.1 H Lymphocytes % 6.0 L Monocytes % 3.1 L Eosinophils % 0.0 D Basophils % 0.8 Nucleated RBC % 0 Sodium 136 Potassium 3.3 L Chloride 104 Carbon Dioxide 22 Anion Gap 10 BUN 15.2 Creatinine 1.4 H Est GFR (CKD-EPI)AfAm 67.42 Est GFR (CKD-EPI)NonAf 58.17 Random Glucose 160 H Lactic Acid 1.4 Calcium 7.3 L Total Bilirubin 1.7 H AST 66 H ALT 37 Alkaline Phosphatase 74 Total Protein 5.5 L Albumin 2.5 L Current Medications Generic Name Dose Route Start Last Admin Trade Name Freq PRN Reason Stop Dose Admin Acetaminophen 650 mg 04/02/19 04:37 04/02/19 16:21 Tylenol - PO 650 mg Q4H PRN Administration FEVER OR PAIN 1-5 Albuterol Sulfate 2 puff 04/01/19 15:16 Ventolin Hfa Inhaler - IH Q4H PRN SHORT OF BREATH/WHEEZING Atorvastatin Calcium 40 mg 04/01/19 22:00 04/01/19 21:19 Lipitor - PO 40 mg HS PB Administration Fentanyl 50 mcg 04/01/19 15:16 Sublimaze Injection - IVPUSH [id number] PRN PAIN-PACU ORDER X 4 DOSES ONLY Gabapentin 800 mg 04/01/19 22:00 04/02/19 13:50 Neurontin - PO 800 mg TID PB Administration Heparin Sodium (Porcine) 5,000 unit 04/02/19 22:00 Heparin - SQ TID PB Meropenem 1 gm/ Dextrose 100 mls @ 200 mls/hr 04/01/19 13:45 04/02/19 09:24 IVPB 200 mls/hr Q8H-IV PB Administration Sodium Chloride 1,000 mls @ 125 mls/hr 04/02/19 10:49 04/02/19 13:50 Normal Saline - IV 125 mls/hr ASDIR PB Administration Insulin Aspart 1 vial 04/01/19 22:00 Novolog Vial Sliding Scale - SQ ACHS PB Protocol Ondansetron HCl 4 mg 04/01/19 15:16 Zofran Injection IVPUSH Q6H PRN NAUSEA AND/OR VOMITING Oxycodone HCl 10 mg 04/01/19 17:30 04/02/19 13:50 Roxicodone - PO 10 mg Q4H PRN Administration PAIN 6-10 Home Medications Medication Instructions Recorded Glipizide [Glucotrol -] 5 mg PO DAILY 12/04/16 Albuterol Sulfate Inhaler - 2 inh PO Q4H PRN 01/01/17 [Ventolin Hfa Inhaler -] Atorvastatin Ca [Lipitor] 40 mg PO HS 01/01/17 Gabapentin [Neurontin -] 800 mg PO TID 01/01/17 Albuterol 0.083% Nebulizer Kaya 1 puff IH PRN PRN 04/02/19 [Ventolin 0.083% Nebulizer Soln -] Sitagliptin Phosphate [Januvia] 100 mg PO DAILY 04/02/19 Varenicline Tartrate [Chantix] 1 tab PO DAILY 04/02/19 ASSESSMENT AND PLAN: 48 year old male with history of DM 2, HLD, Hx Urethral stricture (s/p multiple cystocopies and dilatations) admitted to medicine service with severe sepsis s/ p cystoscopy, attempted stricture dilatation, with conversion to suprapubic cystostomy. 1. Severe Sepsis secondary to complicated UTI with Urethral Stricture s/p suprapubic cystostomy after failed stricture dilatation on cystoscopy Fevers, diaphoresis, tachycardia. Lactate levels normalized. Blood/Urine Cx negative IV hydration Meropenem as per ID. CT A/P due to ongoing severe abdominal discomfort and high fevers. 2. DUY, likely sec to obstructive uropathy and sepsis - improving with IV hydration. 3. DM 2 - maintain on insulin sliding scale. Glipizide, Januvia held. 4. HLD - on Statin. 5. Hypokalemia - repleted. DVT Px - Heparin SQ
[2019-04-02] MEDS: ATORVASTATIN CA 40 MG TABLET (FP) PO SCH (20:59)
[2019-04-02] MEDS: HEPARIN NA (PORCINE) 5,000 UNITS/ML 1ML VIAL SQ SCH (20:59)
[2019-04-02] MEDS ORDERED: INSULIN (NOVOLOG) ASPART 100 UNITS/ML 10ML VIAL ONE (21:46)
[2019-04-02] MEDS: INSULIN SLIDING SCALE (NOVOLOG) 1 VIAL SQ SCH (21:47)
[2019-04-03] MEDS ORDERED: MEROPENEM 1 GM VIAL (RESTRICTED TO ID) IVPB ONE ×3 (00:38→16:19)
[2019-04-03] MEDS ORDERED: DEXTROSE 5%-WATER 100 ML IVPB ONE ×3 (00:38→16:20)
[2019-04-03] MEDS: MEROPENEM 1 GM in DEXTROSE 5%-WATER 100 ML IVPB SCH ×3 (02:37→17:39)
[2019-04-03] MEDS: oxyCODONE HCL 5 MG TABLET PO PRN ×4 (06:02→20:29)
[2019-04-03] MEDS: HEPARIN NA (PORCINE) 5,000 UNITS/ML 1ML VIAL SQ SCH ×2 (06:03→14:50)
[2019-04-03] MEDS: GABAPENTIN 400 MG CAPSULE (FP) PO SCH ×3 (06:03→21:32)
[2019-04-03] MEDS: INSULIN SLIDING SCALE (NOVOLOG) 1 VIAL SQ SCH ×4 (07:02→21:30)
[2019-04-03 08:13] LABS: HEMATOCRIT 36.8 % (35.4-49); HEMOGLOBIN 12.7 GM/dL (11.7-16.9); MCH 32.7 pg (25.7-33.7); MCHC 34.6 g/dl (32.0-35.9); MEAN CELL VOLUME 94.3 fl (80-96); MEAN PLT VOLUME 8.5 fl (7.5-11.1); PLATELET COUNT 82 K/MM3 (134-434); RDW 12.8 % (11.9-15.9)
[2019-04-03] MEDS ORDERED: IBUPROFEN 400 MG TABLET (FP) PO ONE (08:15)
[2019-04-03 09:12] LABS: BLOOD UREA NITROGEN 12.3 mg/dL (7-18); CALCIUM 7.7 mg/dL (8.5-10.1); CREATININE 1.2 mg/dL (0.55-1.3); POTASSIUM 3.7 mmol/L (3.5-5.1)
--- NOTE | 2019-04-03 10:53 | PN ---
Progress Note, Physician History of Present Illness: feels better still with abd pain still spiking fevers - Current Medication List Current Medications: Active Medications Acetaminophen (Tylenol -) 650 mg PO Q4H PRN PRN Reason: FEVER OR PAIN 1-5 Last Admin: 04/02/19 16:21 Dose: 650 mg Albuterol Sulfate (Ventolin Hfa Inhaler -) 2 puff IH Q4H PRN PRN Reason: SHORT OF BREATH/WHEEZING Atorvastatin Calcium (Lipitor -) 40 mg PO HS [facility] Last Admin: 04/02/19 20:59 Dose: 40 mg Fentanyl (Sublimaze Injection -) 50 mcg IVPUSH [id number] PRN PRN Reason: PAIN-PACU ORDER X 4 DOSES ONLY Gabapentin (Neurontin -) 800 mg PO TID [facility] Last Admin: 04/03/19 06:03 Dose: 800 mg Heparin Sodium (Porcine) (Heparin -) 5,000 unit SQ TID [facility] Last Admin: 04/03/19 06:03 Dose: 5,000 unit Meropenem 1 gm/ Dextrose 100 mls @ 200 mls/hr IVPB Q8H-IV PB Last Admin: 04/03/19 09:43 Dose: 200 mls/hr Sodium Chloride (Normal Saline -) 1,000 mls @ 125 mls/hr IV ASDIR [facility] Last Admin: 04/03/19 00:00 Dose: 125 mls/hr Insulin Aspart (Novolog Vial Sliding Scale -) 1 vial SQ ACHS [facility]; Protocol Last Admin: 04/03/19 07:02 Dose: 2 units Ondansetron HCl (Zofran Injection) 4 mg IVPUSH Q6H PRN PRN Reason: NAUSEA AND/OR VOMITING Oxycodone HCl (Roxicodone -) 10 mg PO Q4H PRN PRN Reason: PAIN 6-10 Last Admin: 04/03/19 10:22 Dose: 10 mg - Objective Vital Signs: Vital Signs Temperature 103.1 F H 04/03/19 08:51 Pulse Rate 104 H 04/03/19 10:34 Respiratory Rate 20 04/03/19 10:34 Blood Pressure 145/81 04/03/19 10:34 O2 Sat by Pulse Oximetry (%) 90 L 04/03/19 09:00 Constitutional: Yes: Calm, Mild Distress Cardiovascular: Yes: S1, S2 Respiratory: Yes: Regular, CTA Bilaterally Gastrointestinal: Yes: Soft, Hypoactive Bowel Sounds, Tenderness Genitourinary: Yes: Plasencia Present Musculoskeletal: Yes: WNL Extremities: Yes: WNL Neurological: Yes: Alert, Oriented Labs: CBC, BMP 04/03/19 06:55 04/03/19 06:55 Assessment/Plan 48M w/ pmhx of DM, urethral stricture (s/p multiple cystocopies) presents in the hospital s/p cystoscopy on 03/31/19 found to have fevers. Sepsis uti audrey dm plan continue abx hydration close watch monitor fevers rest as per the team
--- NOTE | 2019-04-03 12:05 | PN ---
Physical Exam: SUBJECTIVE: Patient seen and examined. Pt was febrile in am. OBJECTIVE: Vital Signs Period Temp Pulse Resp BP Sys/Dye Pulse Ox Last 24 Hr 97.3 F-103.1 F 64-104 8-20 98-149/60-86 89-96 GENERAL: The patient is awake, alert, and fully oriented. Appears to be in moderate pain. HEAD: Normal with no signs of trauma. EYES: PERRL, extraocular movements intact, sclera anicteric, conjunctiva clear. No ptosis. ENT: Ears normal, nares patent, oropharynx clear without exudates, moist mucous membranes. NECK: Trachea midline, full range of motion, supple. LUNGS: Breath sounds equal, clear to auscultation bilaterally, no wheezes, no crackles, no accessory muscle use. HEART: Tachycardic, S1, S2 without murmur, rub or gallop. ABDOMEN: Tenderness and guarding in lower abdomen and suprapubic region. Dressing in place over surgical wounds. No purulent discharge or bleeding. EXTREMITIES: 2+ pulses, warm, well-perfused, no edema. NEUROLOGICAL: Cranial nerves II through XII grossly intact. Normal speech, gait not observed. PSYCH: Normal mood, normal affect. SKIN: Warm, dry, normal turgor, no rashes or lesions noted. Laboratory Results - last 24 hr CBC, BMP 04/03/19 06:55 04/03/19 06:55 Active Medications Acetaminophen (Tylenol -) 650 mg PO Q4H PRN PRN Reason: FEVER OR PAIN 1-5 Last Admin: 04/02/19 16:21 Dose: 650 mg Albuterol Sulfate (Ventolin Hfa Inhaler -) 2 puff IH Q4H PRN PRN Reason: SHORT OF BREATH/WHEEZING Atorvastatin Calcium (Lipitor -) 40 mg PO HS [facility] Last Admin: 04/02/19 20:59 Dose: 40 mg Fentanyl (Sublimaze Injection -) 50 mcg IVPUSH [id number] PRN PRN Reason: PAIN-PACU ORDER X 4 DOSES ONLY Gabapentin (Neurontin -) 800 mg PO TID [facility] Last Admin: 04/03/19 06:03 Dose: 800 mg Heparin Sodium (Porcine) (Heparin -) 5,000 unit SQ TID [facility] Last Admin: 04/03/19 06:03 Dose: 5,000 unit Meropenem 1 gm/ Dextrose 100 mls @ 200 mls/hr IVPB Q8H-IV PB Last Admin: 04/03/19 09:43 Dose: 200 mls/hr Sodium Chloride (Normal Saline -) 1,000 mls @ 125 mls/hr IV ASDIR PB Last Admin: 04/03/19 00:00 Dose: 125 mls/hr Insulin Aspart (Novolog Vial Sliding Scale -) 1 vial SQ ACHS [facility]; Protocol Last Admin: 04/03/19 07:02 Dose: 2 units Ondansetron HCl (Zofran Injection) 4 mg IVPUSH Q6H PRN PRN Reason: NAUSEA AND/OR VOMITING Oxycodone HCl (Roxicodone -) 10 mg PO Q4H PRN PRN Reason: PAIN 6-10 Last Admin: 04/03/19 10:22 Dose: 10 mg ASSESSMENT/PLAN: 48M w/ pmhx of DM, urethral stricture (s/p multiple cystocopies) presents in the hospital s/p cystoscopy on 03/31/19 and suprapubic cystotomy on 04/01/19 found to have fevers and abdominal pain. #Sepsis; likely due to complicated UTI 2/2 significant hx of urethral stricture CTAP: No fluid collection suspicious of abscess or hematoma Cont treating fever with tylenol prn Lactate improved 4.5 --> 1.4 Leukocytosis improved 11.2 --> 7.0 F/u blood and urine cx Cont meropenem 1gm Q8H per ID Cont IVF NS @ 125 ml/hr Pain control per urology #DUY; likely 2/2 obstructive uropathy Cr improving 1.6 --> 1.4 Cont IVF NS @ 125ml/hr Avoid nephrotoxic medications #DM Pt on glipizide 5mg po daily at home SSI during admission #FEN IVF NS @ 125 ml/hr Regular diet #DVT ppx SCDs and early ambulation #Dispo Monitor on med-surg Visit type - Emergency Visit Emergency Visit: No - New Patient This patient is new to me today: No - Critical Care Critical Care patient: No ATTENDING PHYSICIAN STATEMENT I saw and evaluated the patient. I reviewed the resident's note and discussed the case with the resident. I agree with the resident's findings and plan as documented. SUBJECTIVE: OBJECTIVE: ASSESSMENT AND PLAN:
[2019-04-03] MEDS: SODIUM CHLORIDE 1,000 ML IV SCH ×2 (12:06)
--- NOTE | 2019-04-03 12:23 | PN ---
Progress Note (short form) - Note Progress Note: Pt.seen this morning. Clinically better, still spiking. Cultures negative. Abd. soft still slightly tender. SP Tube functioning well, draining clear urine. Renal function has improved. O/E: There is subcutaneous edema of scrotal skin, non tender. No evidence of any abscess. No perineal fluid collection or tenderness. Both testes are normal. Kushal. Continue antibiotics and observe thru the wknd. Will follow as necessary.
[2019-04-03 14:04] LABS: MAGNESIUM 1.7 mg/dL (1.8-2.4)
--- NOTE | 2019-04-03 18:55 | PN ---
Teaching Attending Note Name of Resident: Lauren Casper ATTENDING PHYSICIAN STATEMENT I saw and evaluated the patient. I reviewed the resident's note and discussed the case with the resident. I agree with the resident's findings and plan as documented. SUBJECTIVE: Complains of ongoingabdominal discomfort s/p suprapubic catheter placement. Fever +. No nausea/vomiting/diarrhea. OBJECTIVE: Febrile, Diaphoretic. T max 103.1. Hemodynamicaly Stable. In discomfort. Last Vital Signs Temp Pulse Resp BP Pulse Ox 98.3 F 92 H 20 102/74 90 L 04/03/19 13:17 04/03/19 13:17 04/03/19 13:17 04/03/19 13:17 04/03/19 09:00 HEENT - Diaphoretic, normocephalic, atraumatic. HEART - S1, S2, RRR LUNGS - clear to auscultation ABDOMEN - Tender LQs, R>L. Soft, Bowel Sounds normal. Suprapubic catheter insertion site dressed, no surrounding erythema. EXTREMITIES - No edema, no calf tenderness. Current Medications Generic Name Dose Route Start Last Admin Trade Name Freq PRN Reason Stop Dose Admin Acetaminophen 650 mg 04/02/19 04:37 04/02/19 16:21 Tylenol - PO 650 mg Q4H PRN Administration FEVER OR PAIN 1-5 Albuterol Sulfate 2 puff 04/01/19 15:16 Ventolin Hfa Inhaler - IH Q4H PRN SHORT OF BREATH/WHEEZING Atorvastatin Calcium 40 mg 04/01/19 22:00 04/02/19 20:59 Lipitor - PO 40 mg HS PB Administration Fentanyl 50 mcg 04/01/19 15:16 Sublimaze Injection - IVPUSH [id number] PRN PAIN-PACU ORDER X 4 DOSES ONLY Gabapentin 800 mg 04/01/19 22:00 04/03/19 14:49 Neurontin - PO 800 mg TID PB Administration Heparin Sodium (Porcine) 5,000 unit 04/02/19 22:00 04/03/19 14:50 Heparin - SQ 5,000 unit TID PB Administration Meropenem 1 gm/ Dextrose 100 mls @ 200 mls/hr 04/01/19 13:45 04/03/19 17:39 IVPB 200 mls/hr Q8H-IV PB Administration Sodium Chloride 1,000 mls @ 125 mls/hr 04/02/19 10:49 04/03/19 12:06 Normal Saline - IV 125 mls/hr ASDIR PB Administration Insulin Aspart 1 vial 04/01/19 22:00 04/03/19 16:55 Novolog Vial Sliding Scale - SQ 2 units ACHS PB Administration Protocol Ondansetron HCl 4 mg 04/01/19 15:16 Zofran Injection IVPUSH Q6H PRN NAUSEA AND/OR VOMITING Oxycodone HCl 10 mg 04/01/19 17:30 04/03/19 14:50 Roxicodone - PO 10 mg Q4H PRN Administration PAIN 6-10 Home Medications Medication Instructions Recorded Glipizide [Glucotrol -] 5 mg PO DAILY 12/04/16 Albuterol Sulfate Inhaler - 2 inh PO Q4H PRN 01/01/17 [Ventolin Hfa Inhaler -] Atorvastatin Ca [Lipitor] 40 mg PO HS 01/01/17 Gabapentin [Neurontin -] 800 mg PO TID 01/01/17 Albuterol 0.083% Nebulizer Kaya 1 puff IH PRN PRN 04/02/19 [Ventolin 0.083% Nebulizer Soln -] Sitagliptin Phosphate [Januvia] 100 mg PO DAILY 04/02/19 Varenicline Tartrate [Chantix] 1 tab PO DAILY 04/02/19 ASSESSMENT AND PLAN: 48 year old male with history of DM 2, HLD, Hx Urethral stricture (s/p multiple cystocopies and dilatations) admitted to medicine service with severe sepsis s/ p cystoscopy, attempted stricture dilatation, with conversion to suprapubic cystostomy. 1. Severe Sepsis secondary to complicated UTI with Urethral Stricture s/p suprapubic cystostomy after failed stricture dilatation on cystoscopy Fevers, diaphoresis, tachycardia. Lactate levels normalized. Blood/Urine Cx negative CT A/P - shows extensive atelectasis, hepatomegaly, suprapubic cath in place, no clear leakage IV hydration ongoing Continue Meropenem as per ID. Incentive Spirometry 2. DUY, likely sec to obstructive uropathy and sepsis - resolved with IV hydration. 3. DM 2 - maintain on insulin sliding scale. Glipizide, Januvia held. 4. HLD - on Statin. 5. Hypokalemia - resolved s/p repletion. 6. Thrombocytopenia - likely consumptive due to fevers. Will hold Heparin and monitor. DVT Px - Heparin SQ held due to Thrombocytopenia.
[2019-04-03] MEDS ORDERED: INSULIN (NOVOLOG) ASPART 100 UNITS/ML 10ML VIAL ONE (21:17)
[2019-04-03] MEDS: ATORVASTATIN CA 40 MG TABLET (FP) PO SCH (21:32)
[2019-04-03] MEDS ORDERED: PT OWN MED DRAWER 7, Y5N ONE (21:37)
[2019-04-03] MEDS: ACETAMINOPHEN 325 MG TABLET (FP) PO PRN (21:39)
[2019-04-04] MEDS ORDERED: DEXTROSE 5%-WATER 100 ML IVPB ONE ×2 (01:03→11:00)
[2019-04-04] MEDS ORDERED: MEROPENEM 1 GM VIAL (RESTRICTED TO ID) IVPB ONE ×2 (01:03→11:00)
[2019-04-04] MEDS: MEROPENEM 1 GM in DEXTROSE 5%-WATER 100 ML IVPB SCH ×2 (01:09→11:06)
[2019-04-04] MEDS: oxyCODONE HCL 5 MG TABLET PO PRN ×3 (01:18→20:41)
[2019-04-04] MEDS: INSULIN SLIDING SCALE (NOVOLOG) 1 VIAL SQ SCH ×5 (06:35→21:25)
[2019-04-04] MEDS: GABAPENTIN 400 MG CAPSULE (FP) PO SCH ×3 (06:35→21:07)
[2019-04-04] MEDS: ACETAMINOPHEN 325 MG TABLET (FP) PO PRN ×3 (06:40→21:10)
[2019-04-04 08:03] LABS: BASO % 0.8 % (0-2.0); EOS % 3.3 % (0-4.5); HEMATOCRIT 37.1 % (35.4-49); HEMOGLOBIN 12.8 GM/dL (11.7-16.9); LYMPH % 13.9 % (8-40); MCH 32.3 pg (25.7-33.7); MCHC 34.6 g/dl (32.0-35.9); MEAN CELL VOLUME 93.3 fl (80-96); MEAN PLT VOLUME 8.6 fl (7.5-11.1); MONO % 5.4 % (3.8-10.2); NEUT % 76.6 % (42.8-82.8); PLATELET COUNT 92 K/MM3 (134-434); RBC 3.98 M/mm3 (4.00-5.60); RDW 12.6 % (11.9-15.9); WHITE BLOOD COUNT 6.6 K/mm3 (4.0-10.0)
[2019-04-04 08:30] LABS: BLOOD UREA NITROGEN 9.6 mg/dL (7-18); CALCIUM 7.8 mg/dL (8.5-10.1); CREATININE 1.1 mg/dL (0.55-1.3)
[2019-04-04] MEDS ORDERED: DOCUSATE SODIUM 100 MG CAPSULE (FP) PO PRN (08:46)
--- NOTE | 2019-04-04 09:04 | PN ---
Physical Exam: SUBJECTIVE: Patient seen and examined. Pt spiked fever overnight. Pt reports decreased scrotal discomfort and swelling. Abdominal pain is improving. Denies nausea/vomiting, tolerating food well. OBJECTIVE: Vital Signs Period Temp Pulse Resp BP Sys/Dye Pulse Ox Last 24 Hr 98.3 F-103.2 F 90-104 18-20 101-145/64-81 96 GENERAL: The patient is awake, alert, and fully oriented. Appears to be in moderate pain. HEAD: Normal with no signs of trauma. EYES: PERRL, extraocular movements intact, sclera anicteric, conjunctiva clear. No ptosis. ENT: Ears normal, nares patent, oropharynx clear without exudates, moist mucous membranes. NECK: Trachea midline, full range of motion, supple. LUNGS: Breath sounds equal, clear to auscultation bilaterally, no wheezes, no crackles, no accessory muscle use. HEART: Tachycardic, S1, S2 without murmur, rub or gallop. ABDOMEN: Mild tenderness in suprapubic and lower abdomen, improving from yesterday. Dressing in place over surgical wounds. No purulent discharge or bleeding. Scrotal swelling and edema decreased. EXTREMITIES: 2+ pulses, warm, well-perfused, no edema. NEUROLOGICAL: Cranial nerves II through XII grossly intact. Normal speech, gait not observed. PSYCH: Normal mood, normal affect. SKIN: Warm, dry, normal turgor, no rashes or lesions noted. Laboratory Results - last 24 hr CBC, BMP 04/04/19 07:06 04/04/19 07:06 Active Medications Acetaminophen (Tylenol -) 650 mg PO Q4H PRN PRN Reason: FEVER OR PAIN 1-5 Last Admin: 04/04/19 06:40 Dose: 650 mg Albuterol Sulfate (Ventolin Hfa Inhaler -) 2 puff IH Q4H PRN PRN Reason: SHORT OF BREATH/WHEEZING Atorvastatin Calcium (Lipitor -) 40 mg PO HS [facility] Last Admin: 04/03/19 21:32 Dose: 40 mg Docusate Sodium (Colace -) 100 mg PO BID PRN PRN Reason: CONSTIPATION Fentanyl (Sublimaze Injection -) 50 mcg IVPUSH [id number] PRN PRN Reason: PAIN-PACU ORDER X 4 DOSES ONLY Gabapentin (Neurontin -) 800 mg PO TID [facility] Last Admin: 04/04/19 06:35 Dose: 800 mg Meropenem 1 gm/ Dextrose 100 mls @ 200 mls/hr IVPB Q8H-IV PB Last Admin: 04/04/19 01:09 Dose: 200 mls/hr Sodium Chloride (Normal Saline -) 1,000 mls @ 125 mls/hr IV ASDIR [facility] Last Admin: 04/03/19 12:06 Dose: 125 mls/hr Insulin Aspart (Novolog Vial Sliding Scale -) 1 vial SQ ACHS [facility]; Protocol Last Admin: 04/04/19 06:35 Dose: Not Given Magnesium Sulfate (Magnesium Sulfate) 1 gm IVPB ONCE ONE Stop: 04/04/19 09:31 Ondansetron HCl (Zofran Injection) 4 mg IVPUSH Q6H PRN PRN Reason: NAUSEA AND/OR VOMITING Oxycodone HCl (Roxicodone -) 10 mg PO Q4H PRN PRN Reason: PAIN 6-10 Last Admin: 04/04/19 01:18 Dose: 10 mg Polyethylene Glycol (Miralax (For Daily Use) -) 17 gm PO DAILY [facility] ASSESSMENT/PLAN: 48M w/ pmhx of DM, urethral stricture (s/p multiple cystocopies) presents in the hospital s/p cystoscopy on 03/31/19 and suprapubic cystotomy on 04/01/19 found to have fevers and abdominal pain. #Sepsis; likely due to complicated UTI 2/2 significant hx of urethral stricture Pt spiked new fever overnight On meropenem 1gm Q8H per ID, day 3 F/u repeat blood and urine cx, repeat CXR CTAP (04/02): No fluid collection suspicious of abscess or hematoma Lactate resolved 4.5 --> 1.4 Leukocytosis resolved 11.2 --> 6.6 F/u repeat blood and urine cx Cont IVF NS @ 125 ml/hr Pain control per urology #DUY; likely 2/2 obstructive uropathy Cr improving 1.6 --> 1.1 Cont IVF NS @ 125ml/hr Avoid nephrotoxic medications #DM Pt on glipizide 5mg po daily at home SSI during admission #FEN IVF NS @ 125 ml/hr Regular diet #DVT ppx SCDs and early ambulation #Dispo Monitor on med-surg Visit type - Emergency Visit Emergency Visit: No - New Patient This patient is new to me today: No - Critical Care Critical Care patient: No ATTENDING PHYSICIAN STATEMENT I saw and evaluated the patient. I reviewed the resident's note and discussed the case with the resident. I agree with the resident's findings and plan as documented. SUBJECTIVE: OBJECTIVE: ASSESSMENT AND PLAN:
[2019-04-04 09:22] LABS: MAGNESIUM 1.8 mg/dL (1.8-2.4); PHOSPHOROUS 1.6 mg/dL (2.5-4.9)
[2019-04-04] MEDS ORDERED: MAGNESIUM SULF 50% (8.12 MEQ/2 ML-1 GM VIAL) IVPB ONE (09:30)
[2019-04-04] MEDS ORDERED: INSULIN (NOVOLOG) ASPART 100 UNITS/ML 10ML VIAL ONE ×2 (11:00→21:18)
[2019-04-04 11:03] LABS: EPI CELLS 5.1 /HPF (0-5/HPF); HYALINE CASTS 21 /lpf (0-8); PH,URINE 5.5 (5.0-8.0); URINE APPEARANCE CLOUDY; URINE BACTERIA 4.8 /hpf (NEGATIVE); URINE BILIRUBIN NEGATIVE (NEGATIVE); URINE COLOR YELLOW; URINE GLUCOSE (UA) 1+ (NEGATIVE); URINE KETONE 1+ (NEGATIVE); URINE LEUK ESTERASE 2+ (NEGATIVE); URINE NITRITE NEGATIVE (NEGATIVE); URINE PROTEIN 1+ (NEGATIVE); URINE UROBILINOGEN 0.2 mg/dL (0.2-1.0); URINE WBC 54 /hpf (0-5)
[2019-04-04] MEDS: SODIUM CHLORIDE 1,000 ML IV SCH (11:07)
[2019-04-04] MEDS: POLYETHYLENE GLYCOL 3350 119 GM BTL PO SCH (11:07)
[2019-04-04 11:38] LABS: URINE RBC 3 /hpf (0-4); YEAST MANY (NEGATIVE)
--- NOTE | 2019-04-04 14:55 | PN ---
Teaching Attending Note Name of Resident: Lauren Casper ATTENDING PHYSICIAN STATEMENT I saw and evaluated the patient. I reviewed the resident's note and discussed the case with the resident. I agree with the resident's findings and plan as documented. SUBJECTIVE: Complains of ongoing R abdominal discomfort s/p suprapubic catheter placement, with some improvement. Fever persistent. No nausea/vomiting/diarrhea. OBJECTIVE: Febrile, Diaphoretic. T max 103.2. Hemodynamicaly Stable. Last Vital Signs Temp Pulse Resp BP Pulse Ox 103.2 F H 95 H 20 130/78 95 04/04/19 07:00 04/04/19 07:00 04/04/19 09:00 04/04/19 07:00 04/04/19 09:00 HEENT - Normocephalic, Atraumatic. HEART - S1, S2, RRR LUNGS - clear to auscultation ABDOMEN - Tender RLQ. Soft, Bowel Sounds normal. Suprapubic catheter insertion site dressed, no surrounding erythema. EXTREMITIES - No edema, no calf tenderness. Laboratory Results - last 24 hr 04/03/19 04/03/19 04/04/19 16:54 21:27 06:30 WBC RBC Hgb Hct MCV MCH MCHC RDW Plt Count MPV Absolute Neuts (auto) Neutrophils % Lymphocytes % Monocytes % Eosinophils % Basophils % Nucleated RBC % Sodium Potassium Chloride Carbon Dioxide Anion Gap BUN Creatinine Est GFR (CKD-EPI)AfAm Est GFR (CKD-EPI)NonAf POC Glucometer 195 160 143 Random Glucose Calcium Phosphorus Magnesium Urine Color Urine Appearance Urine pH Ur Specific Nada Urine Protein Urine Glucose (UA) Urine Ketones Urine Blood Urine Nitrite Urine Bilirubin Urine Urobilinogen Ur Leukocyte Esterase Urine WBC (Auto) Urine RBC (Auto) Urine Casts (Auto) U Pathogenic Cast Auto U Epithel Cells (Auto) U Sm Round Cell (Auto) Urine Bacteria (Auto) Urine Yeast (Auto) 04/04/19 04/04/19 04/04/19 07:06 07:06 09:00 WBC 6.6 RBC 3.98 L Hgb 12.8 Hct 37.1 MCV 93.3 MCH 32.3 MCHC 34.6 RDW 12.6 Plt Count 92 L MPV 8.6 Absolute Neuts (auto) 5.1 Neutrophils % 76.6 Lymphocytes % 13.9 D Monocytes % 5.4 Eosinophils % 3.3 D Basophils % 0.8 Nucleated RBC % 0 Sodium 138 Potassium 4.0 Chloride 103 Carbon Dioxide 26 Anion Gap 9 BUN 9.6 Creatinine 1.1 Est GFR (CKD-EPI)AfAm 90.24 Est GFR (CKD-EPI)NonAf 77.86 POC Glucometer Random Glucose 152 H Calcium 7.8 L Phosphorus 1.6 L Magnesium 1.8 Urine Color Yellow Urine Appearance Cloudy Urine pH 5.5 Ur Specific Nada 1.008 L Urine Protein 1+ H Urine Glucose (UA) 1+ H Urine Ketones 1+ H Urine Blood 2+ H Urine Nitrite Negative Urine Bilirubin Negative Urine Urobilinogen 0.2 Ur Leukocyte Esterase 2+ H Urine WBC (Auto) 54 Urine RBC (Auto) 3 Urine Casts (Auto) 21 U Pathogenic Cast Auto None seen U Epithel Cells (Auto) 5.1 U Sm Round Cell (Auto) None seen Urine Bacteria (Auto) 4.8 Urine Yeast (Auto) Many 04/04/19 11:04 WBC RBC Hgb Hct MCV MCH MCHC RDW Plt Count MPV Absolute Neuts (auto) Neutrophils % Lymphocytes % Monocytes % Eosinophils % Basophils % Nucleated RBC % Sodium Potassium Chloride Carbon Dioxide Anion Gap BUN Creatinine Est GFR (CKD-EPI)AfAm Est GFR (CKD-EPI)NonAf POC Glucometer 245 Random Glucose Calcium Phosphorus Magnesium Urine Color Urine Appearance Urine pH Ur Specific Nada Urine Protein Urine Glucose (UA) Urine Ketones Urine Blood Urine Nitrite Urine Bilirubin Urine Urobilinogen Ur Leukocyte Esterase Urine WBC (Auto) Urine RBC (Auto) Urine Casts (Auto) U Pathogenic Cast Auto U Epithel Cells (Auto) U Sm Round Cell (Auto) Urine Bacteria (Auto) Urine Yeast (Auto) Current Medications Generic Name Dose Route Start Last Admin Trade Name Freq PRN Reason Stop Dose Admin Acetaminophen 650 mg 04/02/19 04:37 04/04/19 13:28 Tylenol - PO 650 mg Q4H PRN Administration FEVER OR PAIN 1-5 Albuterol Sulfate 2 puff 04/01/19 15:16 Ventolin Hfa Inhaler - IH Q4H PRN SHORT OF BREATH/WHEEZING Atorvastatin Calcium 40 mg 04/01/19 22:00 04/03/19 21:32 Lipitor - PO 40 mg HS PB Administration Docusate Sodium 100 mg 04/04/19 08:46 Colace - PO BID PRN CONSTIPATION Fentanyl 50 mcg 04/01/19 15:16 Sublimaze Injection - IVPUSH [id number] PRN PAIN-PACU ORDER X 4 DOSES ONLY Gabapentin 800 mg 04/01/19 22:00 04/04/19 13:59 Neurontin - PO 800 mg TID PB Administration Meropenem 1 gm/ Dextrose 100 mls @ 200 mls/hr 04/01/19 13:45 04/04/19 11:06 IVPB 200 mls/hr Q8H-IV PB Administration Sodium Chloride 1,000 mls @ 125 mls/hr 04/02/19 10:49 04/04/19 11:07 Normal Saline - IV 125 mls/hr ASDIR PB Administration Insulin Aspart 1 vial 04/01/19 22:00 04/04/19 11:06 Novolog Vial Sliding Scale - SQ 4 units ACHS PB Administration Protocol Ondansetron HCl 4 mg 04/01/19 15:16 Zofran Injection IVPUSH Q6H PRN NAUSEA AND/OR VOMITING Oxycodone HCl 10 mg 04/01/19 17:30 04/04/19 11:43 Roxicodone - PO 10 mg Q4H PRN Administration PAIN 6-10 Polyethylene Glycol 17 gm 04/04/19 10:00 04/04/19 11:07 Miralax (For Daily Use) - PO 17 gm DAILY PB Administration Home Medications Medication Instructions Recorded Glipizide [Glucotrol -] 5 mg PO DAILY 12/04/16 Albuterol Sulfate Inhaler - 2 inh PO Q4H PRN 01/01/17 [Ventolin Hfa Inhaler -] Atorvastatin Ca [Lipitor] 40 mg PO HS 01/01/17 Gabapentin [Neurontin -] 800 mg PO TID 01/01/17 Albuterol 0.083% Nebulizer Kaya 1 puff IH PRN PRN 04/02/19 [Ventolin 0.083% Nebulizer Soln -] Sitagliptin Phosphate [Januvia] 100 mg PO DAILY 04/02/19 Varenicline Tartrate [Chantix] 1 tab PO DAILY 04/02/19 ASSESSMENT AND PLAN: 48 year old male with history of DM 2, HLD, Hx Urethral stricture (s/p multiple cystocopies and dilatations) admitted to medicine service with severe sepsis s/ p cystoscopy, attempted stricture dilatation, with conversion to suprapubic cystostomy. 1. Severe Sepsis secondary to complicated UTI with Urethral Stricture s/p suprapubic cystostomy after failed stricture dilatation on cystoscopy Fevers, diaphoresis, tachycardia. Lactate levels normalized. Blood/Urine Cx negative CT A/P - shows extensive atelectasis, hepatomegaly, suprapubic cath in place, no clear leakage IV hydration ongoing Continue Meropenem as per ID. Incentive Spirometry Needs daily Urology follow up. 2. DUY, likely sec to obstructive uropathy and sepsis - resolved with IV hydration. 3. DM 2 - maintain on insulin sliding scale. Glipizide, Januvia held. 4. HLD - on Statin. 5. Hypokalemia - resolved s/p repletion. 6. Thrombocytopenia - likely consumptive due to fevers. Will hold Heparin and monitor. DVT Px - Heparin SQ held due to Thrombocytopenia.
--- NOTE | 2019-04-04 15:05 | PN ---
Progress Note, Physician History of Present Illness: still continues to spike overall patient says he is improving has developed a rash all cx negative so far rsh on face and on the back - Current Medication List Current Medications: Active Medications Acetaminophen (Tylenol -) 650 mg PO Q4H PRN PRN Reason: FEVER OR PAIN 1-5 Last Admin: 04/04/19 13:28 Dose: 650 mg Albuterol Sulfate (Ventolin Hfa Inhaler -) 2 puff IH Q4H PRN PRN Reason: SHORT OF BREATH/WHEEZING Atorvastatin Calcium (Lipitor -) 40 mg PO HS [facility] Last Admin: 04/03/19 21:32 Dose: 40 mg Docusate Sodium (Colace -) 100 mg PO BID PRN PRN Reason: CONSTIPATION Fentanyl (Sublimaze Injection -) 50 mcg IVPUSH [id number] PRN PRN Reason: PAIN-PACU ORDER X 4 DOSES ONLY Gabapentin (Neurontin -) 800 mg PO TID [facility] Last Admin: 04/04/19 13:59 Dose: 800 mg Meropenem 1 gm/ Dextrose 100 mls @ 200 mls/hr IVPB Q8H-IV [facility] Last Admin: 04/04/19 11:06 Dose: 200 mls/hr Sodium Chloride (Normal Saline -) 1,000 mls @ 125 mls/hr IV ASDIR [facility] Last Admin: 04/04/19 11:07 Dose: 125 mls/hr Insulin Aspart (Novolog Vial Sliding Scale -) 1 vial SQ ACHS [facility]; Protocol Last Admin: 04/04/19 11:06 Dose: 4 units Ondansetron HCl (Zofran Injection) 4 mg IVPUSH Q6H PRN PRN Reason: NAUSEA AND/OR VOMITING Oxycodone HCl (Roxicodone -) 10 mg PO Q4H PRN PRN Reason: PAIN 6-10 Last Admin: 04/04/19 11:43 Dose: 10 mg Polyethylene Glycol (Miralax (For Daily Use) -) 17 gm PO DAILY [facility] Last Admin: 04/04/19 11:07 Dose: 17 gm - Objective Vital Signs: Vital Signs Temperature 103.2 F H 04/04/19 07:00 Pulse Rate 95 H 04/04/19 07:00 Respiratory Rate 20 04/04/19 09:00 Blood Pressure 130/78 04/04/19 07:00 O2 Sat by Pulse Oximetry (%) 95 04/04/19 09:00 Constitutional: Yes: No Distress, Calm Cardiovascular: Yes: S1, S2 Respiratory: Yes: Regular, CTA Bilaterally Gastrointestinal: Yes: Normal Bowel Sounds, Soft Genitourinary: Yes: Plasencia Present, Other (clear urine) Musculoskeletal: Yes: WNL Extremities: Yes: WNL Neurological: Yes: Alert, Oriented Psychiatric: Yes: Alert, Oriented Labs: CBC, BMP 04/04/19 07:06 04/04/19 07:06 Assessment/Plan 48M w/ pmhx of DM, urethral stricture (s/p multiple cystocopies) presents in the hospital s/p cystoscopy on 03/31/19 found to have fevers. Sepsis uti audrey dm plan i am going to hold abx and watch as patient has developed the rash we will see what the fever pattern is await for cx reports rest as per the team
--- NOTE | 2019-04-04 16:53 | PN ---
Progress Note (short form) - Note Progress Note: UROLOGY NOTE. PT. WITH SUPRAPUBIC CORBETT-PATENT, URINE-CLEAR, WOUND IS CLEAN, N/ T. T-MAX 103. PT. OFF ANTIBIOPTICS. WILL FOLLOW
[2019-04-04] MEDS: ATORVASTATIN CA 40 MG TABLET (FP) PO SCH (21:07)
[2019-04-05] MEDS: SODIUM CHLORIDE 1,000 ML IV SCH ×2 (00:20→07:13)
[2019-04-05] MEDS: oxyCODONE HCL 5 MG TABLET PO PRN ×2 (06:36→20:45)
[2019-04-05] MEDS: GABAPENTIN 400 MG CAPSULE (FP) PO SCH ×3 (06:38→21:04)
[2019-04-05] MEDS: INSULIN SLIDING SCALE (NOVOLOG) 1 VIAL SQ SCH ×5 (06:38→21:03)
[2019-04-05] MEDS: ACETAMINOPHEN 325 MG TABLET (FP) PO PRN ×3 (06:39→20:47)
[2019-04-05 08:07] LABS: HEMATOCRIT 34.1 % (35.4-49); HEMOGLOBIN 12.1 GM/dL (11.7-16.9); MCH 32.7 pg (25.7-33.7); MCHC 35.5 g/dl (32.0-35.9); MEAN CELL VOLUME 92.3 fl (80-96); MEAN PLT VOLUME 8.9 fl (7.5-11.1); PLATELET COUNT 121 K/MM3 (134-434); RDW 12.9 % (11.9-15.9); WHITE BLOOD COUNT 10.2 K/mm3 (4.0-10.0)
[2019-04-05 08:35] LABS: ALBUMIN 2.5 g/dl (3.4-5.0); BLOOD UREA NITROGEN 9.6 mg/dL (7-18); CALCIUM 7.7 mg/dL (8.5-10.1); CREATININE 1.2 mg/dL (0.55-1.3); MAGNESIUM 2.1 mg/dL (1.8-2.4); POTASSIUM 3.2 mmol/L (3.5-5.1); TOT PROT 5.9 g/dl (6.4-8.2)
--- NOTE | 2019-04-05 09:02 | PN ---
Physical Exam: SUBJECTIVE: Patient seen and examined. Pt spiked fever 103 this am. Reports abd pain and scrotal tenderness has improved. No nausea or vomiting. OBJECTIVE: Vital Signs Period Temp Pulse Resp BP Sys/Dye Pulse Ox Last 24 Hr 98.6 F-103.0 F 75-99 17-20 119-154/69-94 95-96 GENERAL: The patient is awake, alert, and fully oriented. Appears to be in moderate pain. HEAD: Normal with no signs of trauma. EYES: PERRL, extraocular movements intact, sclera anicteric, conjunctiva clear. No ptosis. ENT: Ears normal, nares patent, oropharynx clear without exudates, moist mucous membranes. NECK: Trachea midline, full range of motion, supple. LUNGS: Breath sounds equal, clear to auscultation bilaterally, no wheezes, no crackles, no accessory muscle use. HEART: Tachycardic, S1, S2 without murmur, rub or gallop. ABDOMEN: Mild tenderness in suprapubic and lower abdomen, improving from yesterday. Dressing in place over surgical wounds. No purulent discharge or bleeding. Scrotal swelling and edema decreased. EXTREMITIES: 2+ pulses, warm, well-perfused, no edema. NEUROLOGICAL: Cranial nerves II through XII grossly intact. Normal speech, gait not observed. PSYCH: Normal mood, normal affect. SKIN: Warm, dry, normal turgor. Mild diffuse rash on back. Laboratory Results - last 24 hr CBC, BMP 04/05/19 06:55 04/05/19 06:55 Active Medications Acetaminophen (Tylenol -) 650 mg PO Q4H PRN PRN Reason: FEVER OR PAIN 1-5 Last Admin: 04/05/19 06:39 Dose: 650 mg Albuterol Sulfate (Ventolin Hfa Inhaler -) 2 puff IH Q4H PRN PRN Reason: SHORT OF BREATH/WHEEZING Atorvastatin Calcium (Lipitor -) 40 mg PO HS [facility] Last Admin: 04/04/19 21:07 Dose: 40 mg Docusate Sodium (Colace -) 100 mg PO BID PRN PRN Reason: CONSTIPATION Fentanyl (Sublimaze Injection -) 50 mcg IVPUSH [id number] PRN PRN Reason: PAIN-PACU ORDER X 4 DOSES ONLY Gabapentin (Neurontin -) 800 mg PO TID [facility] Last Admin: 04/05/19 06:38 Dose: 800 mg Sodium Chloride (Normal Saline -) 1,000 mls @ 125 mls/hr IV ASDIR [facility] Last Admin: 04/05/19 07:13 Dose: 125 mls/hr Insulin Aspart (Novolog Vial Sliding Scale -) 1 vial SQ ACHS [facility]; Protocol Last Admin: 04/05/19 06:38 Dose: 2 units Ondansetron HCl (Zofran Injection) 4 mg IVPUSH Q6H PRN PRN Reason: NAUSEA AND/OR VOMITING Oxycodone HCl (Roxicodone -) 10 mg PO Q4H PRN PRN Reason: PAIN LEVEL 6-10 Last Admin: 04/05/19 06:36 Dose: 10 mg Polyethylene Glycol (Miralax (For Daily Use) -) 17 gm PO DAILY [facility] Last Admin: 04/04/19 11:07 Dose: 17 gm Potassium Chloride (K-Dur -) 40 meq PO ONCE ONE Stop: 04/05/19 09:31 ASSESSMENT/PLAN: 48M w/ pmhx of DM, urethral stricture (s/p multiple cystocopies) presents in the hospital s/p cystoscopy on 03/31/19 and suprapubic cystotomy on 04/01/19 found to have fevers and abdominal pain. #Sepsis; likely due to complicated UTI 2/2 significant hx of urethral stricture Pt spiked new fever overnight, experiencing diffuse rash on back On meropenem 1gm Q8H per ID x 3days, now held as may be reason for fevers and rah Urine cx growing yeast like organism Started on aztreonam and vancomycin F/u repeat blood and urine cx, repeat CXR CTAP (04/02): No fluid collection suspicious of abscess or hematoma CXR: BL congestive and infiltrative changes, d/c fluids UA: 1+ glucose, 1+ ketones, 2+ blood, 1+ LE Leukocytosis again, now 10.2 F/u repeat blood and urine cx Pain control per urology #DUY; likely 2/2 obstructive uropathy Cr improving 1.6 --> 1.1 Cont IVF NS @ 125ml/hr Avoid nephrotoxic medications #DM Pt on glipizide 5mg po daily at home SSI during admission #FEN D/c fluids Regular diet #DVT ppx Heparin TID #Dispo Monitor on med-surg Visit type - Emergency Visit Emergency Visit: No - New Patient This patient is new to me today: No - Critical Care Critical Care patient: No ATTENDING PHYSICIAN STATEMENT I saw and evaluated the patient. I reviewed the resident's note and discussed the case with the resident. I agree with the resident's findings and plan as documented. SUBJECTIVE: OBJECTIVE: ASSESSMENT AND PLAN:
[2019-04-05] MEDS ORDERED: POTASSIUM CHLORIDE TABS 20 MEQ TABLET.ER (FP) PO ONE ×2 (09:30)
[2019-04-05] MEDS: POLYETHYLENE GLYCOL 3350 119 GM BTL PO SCH (10:45)
--- NOTE | 2019-04-05 12:40 | PN ---
Teaching Attending Note Name of Resident: Lauren Casper ATTENDING PHYSICIAN STATEMENT I saw and evaluated the patient. I reviewed the resident's note and discussed the case with the resident. I agree with the resident's findings and plan as documented. SUBJECTIVE: R abdominal discomfort improving s/p suprapubic catheter placement. Fever persistent. No nausea/vomiting/diarrhea. OBJECTIVE: T max 103. Hemodynamicaly Stable. Last Vital Signs Temp Pulse Resp BP Pulse Ox 97.7 F 79 19 148/70 96 04/05/19 10:42 04/05/19 10:42 04/05/19 10:42 04/05/19 10:42 04/05/19 09:00 HEART - S1, S2, RRR LUNGS - clear to auscultation ABDOMEN - Tender RLQ (improving). Soft, Bowel Sounds normal. Suprapubic catheter insertion site dressed, no surrounding erythema. EXTREMITIES - No edema, no calf tenderness. Laboratory Results - last 24 hr 04/04/19 04/04/19 04/05/19 17:03 21:15 06:33 WBC RBC Hgb Hct MCV MCH MCHC RDW Plt Count MPV Sodium Potassium Chloride Carbon Dioxide Anion Gap BUN Creatinine Est GFR (CKD-EPI)AfAm Est GFR (CKD-EPI)NonAf POC Glucometer 191 167 174 Random Glucose Calcium Magnesium Total Bilirubin AST ALT Alkaline Phosphatase Total Protein Albumin 04/05/19 04/05/19 04/05/19 06:55 06:55 11:48 WBC 10.2 H RBC 3.70 L Hgb 12.1 Hct 34.1 L MCV 92.3 MCH 32.7 MCHC 35.5 RDW 12.9 Plt Count 121 L D MPV 8.9 Sodium 138 Potassium 3.2 L Chloride 103 Carbon Dioxide 28 Anion Gap 7 L BUN 9.6 Creatinine 1.2 Est GFR (CKD-EPI)AfAm 81.23 Est GFR (CKD-EPI)NonAf 70.09 POC Glucometer 199 Random Glucose 164 H Calcium 7.7 L Magnesium 2.1 Total Bilirubin 1.0 AST 90 H ALT 63 H Alkaline Phosphatase 161 H Total Protein 5.9 L Albumin 2.5 L Current Medications Generic Name Dose Route Start Last Admin Trade Name Freq PRN Reason Stop Dose Admin Acetaminophen 650 mg 04/02/19 04:37 04/05/19 06:39 Tylenol - PO 650 mg Q4H PRN Administration FEVER OR PAIN 1-5 Albuterol Sulfate 2 puff 04/01/19 15:16 Ventolin Hfa Inhaler - IH Q4H PRN SHORT OF BREATH/WHEEZING Atorvastatin Calcium 40 mg 04/01/19 22:00 04/04/19 21:07 Lipitor - PO 40 mg HS PB Administration Docusate Sodium 100 mg 04/04/19 08:46 Colace - PO BID PRN CONSTIPATION Fentanyl 50 mcg 04/01/19 15:16 Sublimaze Injection - IVPUSH [id number] PRN PAIN-PACU ORDER X 4 DOSES ONLY Gabapentin 800 mg 04/01/19 22:00 04/05/19 06:38 Neurontin - PO 800 mg TID PB Administration Insulin Aspart 1 vial 04/01/19 22:00 04/05/19 11:52 Novolog Vial Sliding Scale - SQ 2 units ACHS PB Administration Protocol Ondansetron HCl 4 mg 04/01/19 15:16 Zofran Injection IVPUSH Q6H PRN NAUSEA AND/OR VOMITING Oxycodone HCl 10 mg 04/04/19 17:56 04/05/19 06:36 Roxicodone - PO 10 mg Q4H PRN Administration PAIN LEVEL 6-10 Polyethylene Glycol 17 gm 04/04/19 10:00 04/05/19 10:45 Miralax (For Daily Use) - PO 17 gm DAILY PB Administration Home Medications Medication Instructions Recorded Glipizide [Glucotrol -] 5 mg PO DAILY 12/04/16 Albuterol Sulfate Inhaler - 2 inh PO Q4H PRN 01/01/17 [Ventolin Hfa Inhaler -] Atorvastatin Ca [Lipitor] 40 mg PO HS 01/01/17 Gabapentin [Neurontin -] 800 mg PO TID 01/01/17 Albuterol 0.083% Nebulizer Kaya 1 puff IH PRN PRN 04/02/19 [Ventolin 0.083% Nebulizer Soln -] Sitagliptin Phosphate [Januvia] 100 mg PO DAILY 04/02/19 Varenicline Tartrate [Chantix] 1 tab PO DAILY 04/02/19 ASSESSMENT AND PLAN: 48 year old male with history of DM 2, HLD, Hx Urethral stricture (s/p multiple cystocopies and dilatations) admitted to medicine service with severe sepsis s/ p cystoscopy, attempted stricture dilatation, with conversion to suprapubic cystostomy. 1. Severe Sepsis secondary to complicated UTI with Urethral Stricture s/p suprapubic cystostomy after failed stricture dilatation on cystoscopy Intermittent fevers, diaphoresis, tachycardia ongoing Lactate levels normalized. Blood Cx negative Urine Cx - yeast like organism. CT A/P - shows extensive atelectasis, hepatomegaly, suprapubic cath in place, no clear leakage Meropenem held due to persistent fevers and mild rash on torso. Will discuss with ID regarding possible Rx for yeast in urine. Urology follow up. 2. DUY, likely sec to obstructive uropathy and sepsis - resolved with IV hydration. 3. DM 2 - maintain on insulin sliding scale. Glipizide, Januvia held. 4. HLD - on Statin. 5. Hypokalemia - sec to IV hydration. Will replete. 6. Thrombocytopenia - likely consumptive due to fevers. Improving. 7. Elevated Transaminases - likely sec to Abx therapy. Will monitor. Given persistent fevers, will order Abdominal US and Hepatitis work-up. DVT Px - Heparin SQ initially held due to Thrombocytopenia, will now resume as Plts > 100.
--- NOTE | 2019-04-05 13:35 | PN ---
Progress Note, Physician History of Present Illness: Events noted. Pt with with fevers, Tmax 103F this am. Meropenem stopped yesterday due to rash. Pt notes increased cough, difficulty taking deep breaths. CXR results noted. - Current Medication List Current Medications: Active Medications Acetaminophen (Tylenol -) 650 mg PO Q4H PRN PRN Reason: FEVER OR PAIN 1-5 Last Admin: 04/05/19 06:39 Dose: 650 mg Albuterol Sulfate (Ventolin Hfa Inhaler -) 2 puff IH Q4H PRN PRN Reason: SHORT OF BREATH/WHEEZING Atorvastatin Calcium (Lipitor -) 40 mg PO HS [facility] Last Admin: 04/04/19 21:07 Dose: 40 mg Docusate Sodium (Colace -) 100 mg PO BID PRN PRN Reason: CONSTIPATION Fentanyl (Sublimaze Injection -) 50 mcg IVPUSH [id number] PRN PRN Reason: PAIN-PACU ORDER X 4 DOSES ONLY Gabapentin (Neurontin -) 800 mg PO TID [facility] Last Admin: 04/05/19 06:38 Dose: 800 mg Insulin Aspart (Novolog Vial Sliding Scale -) 1 vial SQ [facility]; Protocol Last Admin: 04/05/19 11:52 Dose: 2 units Ondansetron HCl (Zofran Injection) 4 mg IVPUSH Q6H PRN PRN Reason: NAUSEA AND/OR VOMITING Oxycodone HCl (Roxicodone -) 10 mg PO Q4H PRN PRN Reason: PAIN LEVEL 6-10 Last Admin: 04/05/19 06:36 Dose: 10 mg Polyethylene Glycol (Miralax (For Daily Use) -) 17 gm PO DAILY [facility] Last Admin: 04/05/19 10:45 Dose: 17 gm - Objective Vital Signs: Vital Signs Temperature 97.7 F 04/05/19 10:42 Pulse Rate 79 04/05/19 10:42 Respiratory Rate 19 04/05/19 10:42 Blood Pressure 148/70 04/05/19 10:42 O2 Sat by Pulse Oximetry (%) 96 04/05/19 09:00 Constitutional: Yes: No Distress, Calm Cardiovascular: Yes: Regular Rate and Rhythm Respiratory: Yes: Wheezes (mild, expiratory) Gastrointestinal: Yes: Normal Bowel Sounds, Soft Genitourinary: Yes: Other (+SPC, draining clear yellow urine) Edema: No Integumentary: Yes: Rash (upper back/chest) Wound/Incision: Yes: [place] Intact Neurological: Yes: Alert, Oriented Labs: CBC, BMP 04/05/19 06:55 04/05/19 06:55 Microbiology 04/04/19 10:05 Blood - Peripheral Venous Blood Culture - Preliminary NO GROWTH OBTAINED AFTER 24 HOURS, INCUBATION TO CONTINUE FOR 4 DAYS. 04/04/19 10:00 Blood - Peripheral Venous Blood Culture - Preliminary NO GROWTH OBTAINED AFTER 24 HOURS, INCUBATION TO CONTINUE FOR 4 DAYS. 04/04/19 09:00 Urine - Urine Clean Catch Urine Culture - Final Yeast Like Organism 04/01/19 04:40 Blood - Peripheral Venous Blood Culture - Preliminary NO GROWTH OBTAINED AFTER 96 HOURS, INCUBATION TO CONTINUE FOR 1 DAYS. 04/01/19 04:40 Blood - Peripheral Venous Blood Culture - Preliminary NO GROWTH OBTAINED AFTER 96 HOURS, INCUBATION TO CONTINUE FOR 1 DAYS. 04/01/19 04:20 Urine - Urine Clean Catch Urine Culture - Final Normal Urogenital [place] - ....Imaging Chest X-ray: Report Reviewed Assessment/Plan Urethral stricture/obstructive Uropathy s/p SPC Fevers Rash - possible antibiotic allergy -- blood cultures NGTD -- CXR with b/l atelectasis/infiltrative changes - Possible developing PNA -- will restart antibiotics empirically, monitor renal function -- monitor temps, pt currently without acute distress
[2019-04-05] MEDS: VANCOMYCIN 1 GRAM (PRE-DOCKED) 1,000 MG/250 ML BAG IVPB SCH (14:39)
[2019-04-05] MEDS: HEPARIN NA (PORCINE) 5,000 UNITS/ML 1ML VIAL SQ SCH ×3 (14:40→21:03)
[2019-04-05] MEDS: AZTREONAM 2 GM in DEXTROSE 5%-WATER 100 ML IVPB SCH ×2 (16:35→17:24)
[2019-04-05] MEDS ORDERED: PT OWN MED DRAWER 7, Y5N ONE (17:20)
[2019-04-05] MEDS: ATORVASTATIN CA 40 MG TABLET (FP) PO SCH (21:04)
[2019-04-06] MEDS: VANCOMYCIN 1 GRAM (PRE-DOCKED) 1,000 MG/250 ML BAG IVPB SCH ×2 (01:19→13:08)
[2019-04-06] MEDS: AZTREONAM 2 GM in DEXTROSE 5%-WATER 100 ML IVPB SCH ×3 (01:19→17:17)
[2019-04-06] MEDS: ACETAMINOPHEN 325 MG TABLET (FP) PO PRN (05:31)
[2019-04-06] MEDS: GABAPENTIN 400 MG CAPSULE (FP) PO SCH ×4 (06:29→22:27)
[2019-04-06] MEDS: INSULIN SLIDING SCALE (NOVOLOG) 1 VIAL SQ SCH ×4 (06:29→22:18)
[2019-04-06] MEDS: HEPARIN NA (PORCINE) 5,000 UNITS/ML 1ML VIAL SQ SCH ×3 (06:29→22:19)
[2019-04-06] MEDS: oxyCODONE HCL 5 MG TABLET PO PRN ×3 (06:48→22:30)
[2019-04-06 08:08] LABS: BASO % 0.3 % (0-2.0); HEMATOCRIT 34.4 % (35.4-49); HEMOGLOBIN 11.9 GM/dL (11.7-16.9); MCH 32.2 pg (25.7-33.7); MCHC 34.7 g/dl (32.0-35.9); MEAN CELL VOLUME 92.8 fl (80-96); MEAN PLT VOLUME 8.9 fl (7.5-11.1); MONO % 6.5 % (3.8-10.2); NEUT % 73.2 % (42.8-82.8); PLATELET COUNT 142 K/MM3 (134-434); RBC 3.71 M/mm3 (4.00-5.60); RDW 12.7 % (11.9-15.9); WHITE BLOOD COUNT 11.2 K/mm3 (4.0-10.0)
[2019-04-06 08:16] LABS: ALBUMIN 2.5 g/dl (3.4-5.0); BILIRUBIN,TOTAL 1.1 mg/dL (0.2-1); BLOOD UREA NITROGEN 11.6 mg/dL (7-18); CALCIUM 8.1 mg/dL (8.5-10.1); CREATININE 1.2 mg/dL (0.55-1.3); MAGNESIUM 2.1 mg/dL (1.8-2.4); POTASSIUM 3.7 mmol/L (3.5-5.1); TOT PROT 6.3 g/dl (6.4-8.2)
[2019-04-06] MEDS: POLYETHYLENE GLYCOL 3350 119 GM BTL PO SCH (10:30)
--- NOTE | 2019-04-06 13:36 | PN ---
Progress Note, Physician History of Present Illness: Pt is refusing antibiotics. States that the fevers begin after antibiotic administration and believes they are the source. Not received doses today. He is currently afebrile. Has no complaints. - Current Medication List Current Medications: Active Medications Acetaminophen (Tylenol -) 650 mg PO Q4H PRN PRN Reason: FEVER OR PAIN 1-5 Last Admin: 04/06/19 05:31 Dose: 650 mg Albuterol Sulfate (Ventolin Hfa Inhaler -) 2 puff IH Q4H PRN PRN Reason: SHORT OF BREATH/WHEEZING Atorvastatin Calcium (Lipitor -) 40 mg PO HS [facility] Last Admin: 04/05/19 21:04 Dose: Not Given Docusate Sodium (Colace -) 100 mg PO BID PRN PRN Reason: CONSTIPATION Last Admin: 04/05/19 21:25 Dose: 100 mg Fentanyl (Sublimaze Injection -) 50 mcg IVPUSH [id number] PRN PRN Reason: PAIN-PACU ORDER X 4 DOSES ONLY Gabapentin (Neurontin -) 800 mg PO TID [facility] Last Admin: 04/06/19 06:29 Dose: Not Given Heparin Sodium (Porcine) (Heparin -) 5,000 unit SQ TID [facility] Last Admin: 04/06/19 13:09 Dose: Not Given Aztreonam 2 gm/ Dextrose 100 mls @ 100 mls/hr IVPB Q8H-IV [facility]; Protocol Last Admin: 04/06/19 10:29 Dose: Not Given Vancomycin HCl (Vancomycin (Pre-Docked)) 1,000 mg in 250 mls @ 166.667 mls/hr IVPB BID@0200,1400 [facility]; Protocol Last Admin: 04/06/19 13:08 Dose: Not Given Insulin Aspart (Novolog Vial Sliding Scale -) 1 vial SQ ACHS [facility]; Protocol Last Admin: 04/06/19 11:09 Dose: Not Given Ondansetron HCl (Zofran Injection) 4 mg IVPUSH Q6H PRN PRN Reason: NAUSEA AND/OR VOMITING Oxycodone HCl (Roxicodone -) 10 mg PO Q4H PRN PRN Reason: PAIN LEVEL 6-10 Last Admin: 04/06/19 06:48 Dose: 10 mg Polyethylene Glycol (Miralax (For Daily Use) -) 17 gm PO DAILY [facility] Last Admin: 04/06/19 10:30 Dose: Not Given - Objective Vital Signs: Vital Signs Temperature 97.5 F L 04/06/19 10:29 Pulse Rate 77 04/06/19 07:32 Respiratory Rate 20 04/06/19 09:00 Blood Pressure 127/58 L 04/06/19 07:32 O2 Sat by Pulse Oximetry (%) 96 04/06/19 09:00 Constitutional: Yes: No Distress, Calm Cardiovascular: Yes: Regular Rate and Rhythm Respiratory: Yes: Regular Gastrointestinal: Yes: Normal Bowel Sounds, Soft Integumentary: Yes: WNL Neurological: Yes: Alert, Oriented Labs: CBC, BMP 04/06/19 07:15 04/06/19 07:15 Assessment/Plan Urethral stricture/obstructive Uropathy s/p SPC Fevers Rash - possible antibiotic allergy -- blood cultures NGTD -- CXR with b/l atelectasis/infiltrative changes -- Pt refused antibiotics today -- continue monitor temps -- rash improved
--- NOTE | 2019-04-06 16:18 | PN ---
Progress Note (short form) - Note Progress Note: SUBJECTIVE: R abdominal discomfort improving s/p suprapubic catheter placement. Fever persistent - downtrending. No nausea/vomiting/diarrhea. OBJECTIVE: T max 100.2. Hemodynamicaly Stable. Last Vital Signs Temp Pulse Resp BP Pulse Ox 98.7 F 68 20 128/68 96 04/06/19 14:26 04/06/19 14:26 04/06/19 14:26 04/06/19 14:26 04/06/19 09:00 HEART - S1, S2, RRR LUNGS - clear to auscultation ABDOMEN - Tender RLQ (improving). Soft, Bowel Sounds normal. Suprapubic catheter insertion site dressed. EXTREMITIES - No edema, no calf tenderness. SKIN: Drug rash much improved. Laboratory Results - last 24 hr 04/05/19 04/05/19 04/06/19 16:52 21:02 06:27 WBC RBC Hgb Hct MCV MCH MCHC RDW Plt Count MPV Absolute Neuts (auto) Neutrophils % Lymphocytes % Monocytes % Eosinophils % Basophils % Nucleated RBC % Sodium Potassium Chloride Carbon Dioxide Anion Gap BUN Creatinine Est GFR (CKD-EPI)AfAm Est GFR (CKD-EPI)NonAf POC Glucometer 190 153 157 Random Glucose Calcium Magnesium Total Bilirubin AST ALT Alkaline Phosphatase Total Protein Albumin 04/06/19 04/06/19 07:15 07:15 WBC 11.2 H RBC 3.71 L Hgb 11.9 Hct 34.4 L MCV 92.8 MCH 32.2 MCHC 34.7 RDW 12.7 Plt Count 142 MPV 8.9 Absolute Neuts (auto) 8.2 H Neutrophils % 73.2 Lymphocytes % 15.0 Monocytes % 6.5 Eosinophils % 5.0 H Basophils % 0.3 Nucleated RBC % 0 Sodium 138 Potassium 3.7 Chloride 103 Carbon Dioxide 29 Anion Gap 6 L BUN 11.6 Creatinine 1.2 Est GFR (CKD-EPI)AfAm 81.23 Est GFR (CKD-EPI)NonAf 70.09 POC Glucometer Random Glucose 164 H Calcium 8.1 L Magnesium 2.1 Total Bilirubin 1.1 H AST 70 H ALT 61 Alkaline Phosphatase 166 H Total Protein 6.3 L Albumin 2.5 L Current Medications Generic Name Dose Route Start Last Admin Trade Name Freq PRN Reason Stop Dose Admin Acetaminophen 650 mg 04/02/19 04:37 04/06/19 05:31 Tylenol - PO 650 mg Q4H PRN Administration FEVER OR PAIN 1-5 Albuterol Sulfate 2 puff 04/01/19 15:16 Ventolin Hfa Inhaler - IH Q4H PRN SHORT OF BREATH/WHEEZING Atorvastatin Calcium 40 mg 04/01/19 22:00 04/05/19 21:04 Lipitor - PO Not Given HS [facility] Docusate Sodium 100 mg 04/04/19 08:46 04/05/19 21:25 Colace - PO 100 mg BID PRN Administration CONSTIPATION Fentanyl 50 mcg 04/01/19 15:16 Sublimaze Injection - IVPUSH [id number] PRN PAIN-PACU ORDER X 4 DOSES ONLY Gabapentin 800 mg 04/01/19 22:00 04/06/19 14:27 Neurontin - PO Not Given TID [facility] Heparin Sodium (Porcine) 5,000 unit 04/05/19 14:00 04/06/19 13:09 Heparin - SQ Not Given TID [facility] Aztreonam 2 gm/ Dextrose 100 mls @ 100 mls/hr 04/05/19 14:00 04/06/19 10:29 IVPB Not Given Q8H-IV [facility] Protocol Vancomycin HCl 1,000 mg in 250 mls @ 166.667 mls/hr 04/05/19 14:00 04/06/19 13:08 Vancomycin (Pre-Docked) IVPB Not Given BID@0200,1400 [facility] Protocol Insulin Aspart 1 vial 04/01/19 22:00 04/06/19 11:09 Novolog Vial Sliding Scale - SQ Not Given ACHS [facility] Protocol Ondansetron HCl 4 mg 04/01/19 15:16 Zofran Injection IVPUSH Q6H PRN NAUSEA AND/OR VOMITING Oxycodone HCl 10 mg 04/04/19 17:56 04/06/19 15:43 Roxicodone - PO 10 mg Q4H PRN Administration PAIN LEVEL 6-10 Polyethylene Glycol 17 gm 04/04/19 10:00 04/06/19 10:30 Miralax (For Daily Use) - PO Not Given DAILY [facility] Home Medications Medication Instructions Recorded Glipizide [Glucotrol -] 5 mg PO DAILY 12/04/16 Albuterol Sulfate Inhaler - 2 inh PO Q4H PRN 01/01/17 [Ventolin Hfa Inhaler -] Atorvastatin Ca [Lipitor] 40 mg PO HS 01/01/17 Gabapentin [Neurontin -] 800 mg PO TID 01/01/17 Albuterol 0.083% Nebulizer Kaya 1 puff IH PRN PRN 04/02/19 [Ventolin 0.083% Nebulizer Soln -] Sitagliptin Phosphate [Januvia] 100 mg PO DAILY 04/02/19 Varenicline Tartrate [Chantix] 1 tab PO DAILY 04/02/19 ASSESSMENT AND PLAN: 48 year old male with history of DM 2, HLD, Hx Urethral stricture (s/p multiple cystocopies and dilatations) admitted to medicine service with severe sepsis s/ p cystoscopy, attempted stricture dilatation, with conversion to suprapubic cystostomy. 1. Severe Sepsis secondary to complicated UTI with Urethral Stricture s/p suprapubic cystostomy after failed stricture dilatation on cystoscopy Intermittent fevers Lactate levels normalized. Blood Cx negative Urine Cx - yeast like organism. CT A/P - shows extensive atelectasis, hepatomegaly, suprapubic cath in place, no clear leakage Meropenem held due to persistent fevers and mild rash on torso. ID subsequently recommended change in Abx to Aztreonam and Vancomycin. Patient declines further Abx therapy since he developed fever after receiving doses of the new abx as he feels the fever to be Abx related. ID aware. Urology follow up. 2. DUY, likely sec to obstructive uropathy and sepsis - resolved with IV hydration. 3. DM 2 - maintain on insulin sliding scale. Glipizide, Januvia held. 4. HLD - on Statin. 5. Hypokalemia - sec to IV hydration. Repleted. 6. Thrombocytopenia - likely consumptive due to fevers/sepsis. Resolved. 7. Elevated Transaminases - likely sec to Abx therapy. Improving. Will monitor. Abdominal US and Hepatitis work-up pending. DVT Px - Heparin SQ Visit type - Emergency Visit Emergency Visit: Yes ED Registration Date: 04/01/19 Care time: The patient presented to the Emergency Department on the above date and was hospitalized for further evaluation of their emergent condition. - New Patient This patient is new to me today: No - Critical Care Critical Care patient: No - Discharge Referral Referred to [facility] Med P.C.: No
[2019-04-06 20:40] VITALS: TEMP 98.5
[2019-04-06] MEDS ORDERED: INSULIN (NOVOLOG) ASPART 100 UNITS/ML 10ML VIAL ONE (22:03)
[2019-04-06] MEDS: ATORVASTATIN CA 40 MG TABLET (FP) PO SCH ×2 (22:19→22:26)
[2019-04-07] MEDS: AZTREONAM 2 GM in DEXTROSE 5%-WATER 100 ML IVPB SCH ×2 (02:05→10:57)
[2019-04-07] MEDS: VANCOMYCIN 1 GRAM (PRE-DOCKED) 1,000 MG/250 ML BAG IVPB SCH (02:05)
[2019-04-07] MEDS: oxyCODONE HCL 5 MG TABLET PO PRN ×2 (04:05→10:16)
[2019-04-07] MEDS: GABAPENTIN 400 MG CAPSULE (FP) PO SCH (05:54)
[2019-04-07] MEDS: HEPARIN NA (PORCINE) 5,000 UNITS/ML 1ML VIAL SQ SCH (05:54)
[2019-04-07] MEDS: INSULIN SLIDING SCALE (NOVOLOG) 1 VIAL SQ SCH (07:25)
[2019-04-07 09:45] LABS: BASO % 0.5 % (0-2.0); EOS % 5.7 % (0-4.5); HEMATOCRIT 36.5 % (35.4-49); HEMOGLOBIN 12.5 GM/dL (11.7-16.9); LYMPH % 20.9 % (8-40); MCH 32.2 pg (25.7-33.7); MCHC 34.2 g/dl (32.0-35.9); MEAN PLT VOLUME 9.1 fl (7.5-11.1); NEUT % 64.9 % (42.8-82.8); PLATELET COUNT 211 K/MM3 (134-434); RBC 3.88 M/mm3 (4.00-5.60); WHITE BLOOD COUNT 10.6 K/mm3 (4.0-10.0)
[2019-04-07] MEDS ORDERED: ACETAMINOPHEN 325 MG TABLET (FP) PO ONE (09:56)
[2019-04-07] MEDS: IBUPROFEN 600 MG TABLET (FP) PO ONE ×2 (10:13→10:56)
--- NOTE | 2019-04-07 10:25 | PN ---
Progress Note (short form) - Note Progress Note: Pt seen this morning. SP tube functioning well, draining clear urine. Abd soft, non tender. Penile edema has subsided. Epididymitis has resolved, much less tender to touch. No tenderness in the perineal area. Pt insists on going home today. Will wait for ID decision. At present pt. is progressing well. will follow.
[2019-04-07 10:29] LABS: ALBUMIN 2.7 g/dl (3.4-5.0); BLOOD UREA NITROGEN 12.1 mg/dL (7-18); CALCIUM 8.1 mg/dL (8.5-10.1); CREATININE 1.3 mg/dL (0.55-1.3); POTASSIUM 3.1 mmol/L (3.5-5.1); TOT PROT 6.5 g/dl (6.4-8.2)
[2019-04-07] MEDS: POLYETHYLENE GLYCOL 3350 119 GM BTL PO SCH (10:57)
--- NOTE | 2019-04-07 12:10 | PN ---
Progress Note, Physician History of Present Illness: stable no complaints has been afebrile - Current Medication List Current Medications: Active Medications Acetaminophen (Tylenol -) 650 mg PO Q4H PRN PRN Reason: FEVER OR PAIN 1-5 Last Admin: 04/06/19 05:31 Dose: 650 mg Albuterol Sulfate (Ventolin Hfa Inhaler -) 2 puff IH Q4H PRN PRN Reason: SHORT OF BREATH/WHEEZING Last Admin: 04/06/19 16:46 Dose: 2 puff Atorvastatin Calcium (Lipitor -) 40 mg PO HS [facility] Last Admin: 04/06/19 22:26 Dose: Not Given Docusate Sodium (Colace -) 100 mg PO BID PRN PRN Reason: CONSTIPATION Last Admin: 04/05/19 21:25 Dose: 100 mg Fentanyl (Sublimaze Injection -) 50 mcg IVPUSH [id number] PRN PRN Reason: PAIN-PACU ORDER X 4 DOSES ONLY Gabapentin (Neurontin -) 800 mg PO TID [facility] Last Admin: 04/07/19 05:54 Dose: Not Given Heparin Sodium (Porcine) (Heparin -) 5,000 unit SQ TID [facility] Last Admin: 04/07/19 05:54 Dose: Not Given Aztreonam 2 gm/ Dextrose 100 mls @ 100 mls/hr IVPB Q8H-IV [facility]; Protocol Last Admin: 04/07/19 10:57 Dose: Not Given Vancomycin HCl (Vancomycin (Pre-Docked)) 1,000 mg in 250 mls @ 166.667 mls/hr IVPB BID@0200,1400 [facility]; Protocol Last Admin: 04/07/19 02:05 Dose: Not Given Insulin Aspart (Novolog Vial Sliding Scale -) 1 vial SQ ACHS [facility]; Protocol Last Admin: 04/07/19 07:25 Dose: 2 units Ondansetron HCl (Zofran Injection) 4 mg IVPUSH Q6H PRN PRN Reason: NAUSEA AND/OR VOMITING Oxycodone HCl (Roxicodone -) 10 mg PO Q4H PRN PRN Reason: PAIN LEVEL 6-10 Last Admin: 04/07/19 10:16 Dose: 10 mg Polyethylene Glycol (Miralax (For Daily Use) -) 17 gm PO DAILY [facility] Last Admin: 04/07/19 10:57 Dose: Not Given - Objective Vital Signs: Vital Signs Temperature 98.5 F 04/06/19 20:38 Pulse Rate 81 04/06/19 20:38 Respiratory Rate 20 04/06/19 20:38 Blood Pressure 123/73 04/06/19 20:38 O2 Sat by Pulse Oximetry (%) 96 04/06/19 09:00 Constitutional: Yes: No Distress, Calm Cardiovascular: Yes: S1, S2 Respiratory: Yes: Regular, CTA Bilaterally Gastrointestinal: Yes: Normal Bowel Sounds, Soft Genitourinary: Yes: Plasencia Present Musculoskeletal: Yes: WNL Extremities: Yes: WNL Neurological: Yes: Alert, Oriented Psychiatric: Yes: Alert, Oriented Labs: CBC, BMP 04/07/19 09:05 04/07/19 09:05 Assessment/Plan 48M w/ pmhx of DM, urethral stricture (s/p multiple cystocopies) presents in the hospital s/p cystoscopy on 03/31/19 found to have fevers. Sepsis uti audrey dm rash plan continue current mgmt afebrile patient can be d/gabby rest as per the team
[2019-04-07 12:18] VITALS: BP 121/61; PULSE 79
[2019-04-07] MEDS ORDERED: INSULIN (NOVOLOG) ASPART 100 UNITS/ML 10ML VIAL ONE (12:57)
--- NOTE | 2019-04-07 14:10 | PN ---
Teaching Attending Note Name of Resident: Lauren Casper ATTENDING PHYSICIAN STATEMENT I saw and evaluated the patient. I reviewed the resident's note and discussed the case with the resident. I agree with the resident's findings and plan as documented. SUBJECTIVE: R abdominal discomfort improving s/p suprapubic catheter placement. Afebrile overnight. No nausea/vomiting/diarrhea. OBJECTIVE: Afebrile. Hemodynamicaly Stable. Last Vital Signs Temp Pulse Resp BP Pulse Ox 98.5 F 79 20 121/61 96 04/06/19 20:38 04/07/19 10:00 04/07/19 10:00 04/07/19 10:00 04/06/19 09:00 HEART - S1, S2, RRR LUNGS - clear to auscultation ABDOMEN - Mild tenderness RLQ (improving). Soft, Bowel Sounds normal. Suprapubic catheter insertion site dressed. EXTREMITIES - No edema, no calf tenderness. SKIN: Drug rash much improved. Laboratory Results - last 24 hr 04/06/19 04/07/19 04/07/19 21:06 06:53 09:05 WBC 10.6 H RBC 3.88 L Hgb 12.5 Hct 36.5 MCV 94.0 MCH 32.2 MCHC 34.2 RDW 13.0 Plt Count 211 D MPV 9.1 Absolute Neuts (auto) 6.9 Neutrophils % 64.9 Lymphocytes % 20.9 D Monocytes % 8.0 Eosinophils % 5.7 H Basophils % 0.5 Nucleated RBC % 0 Sodium Potassium Chloride Carbon Dioxide Anion Gap BUN Creatinine Est GFR (CKD-EPI)AfAm Est GFR (CKD-EPI)NonAf POC Glucometer 215 165 Random Glucose Calcium Total Bilirubin AST ALT Alkaline Phosphatase Total Protein Albumin 04/07/19 04/07/19 09:05 11:20 WBC RBC Hgb Hct MCV MCH MCHC RDW Plt Count MPV Absolute Neuts (auto) Neutrophils % Lymphocytes % Monocytes % Eosinophils % Basophils % Nucleated RBC % Sodium 135 L Potassium 3.1 L Chloride 99 Carbon Dioxide 30 Anion Gap 6 L BUN 12.1 Creatinine 1.3 Est GFR (CKD-EPI)AfAm 73.74 Est GFR (CKD-EPI)NonAf 63.62 POC Glucometer 195 Random Glucose 193 H Calcium 8.1 L Total Bilirubin 1.0 AST 54 H ALT 59 Alkaline Phosphatase 177 H Total Protein 6.5 Albumin 2.7 L Current Medications Generic Name Dose Route Start Last Admin Trade Name Freq PRN Reason Stop Dose Admin Acetaminophen 650 mg 04/02/19 04:37 04/06/19 05:31 Tylenol - PO 650 mg Q4H PRN Administration FEVER OR PAIN 1-5 Albuterol Sulfate 2 puff 04/01/19 15:16 04/06/19 16:46 Ventolin Hfa Inhaler - IH 2 puff Q4H PRN Administration SHORT OF BREATH/WHEEZING Atorvastatin Calcium 40 mg 04/01/19 22:00 04/06/19 22:26 Lipitor - PO Not Given [facility] Docusate Sodium 100 mg 04/04/19 08:46 04/05/19 21:25 Colace - PO 100 mg BID PRN Administration CONSTIPATION Fentanyl 50 mcg 04/01/19 15:16 Sublimaze Injection - IVPUSH [id number] PRN PAIN-PACU ORDER X 4 DOSES ONLY Gabapentin 800 mg 04/01/19 22:00 04/07/19 05:54 Neurontin - PO Not Given TID [facility] Heparin Sodium (Porcine) 5,000 unit 04/05/19 14:00 04/07/19 05:54 Heparin - SQ Not Given TID [facility] Aztreonam 2 gm/ Dextrose 100 mls @ 100 mls/hr 04/05/19 14:00 04/07/19 10:57 IVPB Not Given Q8H-IV [facility] Protocol Vancomycin HCl 1,000 mg in 250 mls @ 166.667 mls/hr 04/05/19 14:00 04/07/19 02:05 Vancomycin (Pre-Docked) IVPB Not Given BID@0200,1400 [facility] Protocol Insulin Aspart 1 vial 04/01/19 22:00 04/07/19 07:25 Novolog Vial Sliding Scale - SQ 2 units ACHS [facility] Administration Protocol Ondansetron HCl 4 mg 04/01/19 15:16 Zofran Injection IVPUSH Q6H PRN NAUSEA AND/OR VOMITING Oxycodone HCl 10 mg 04/04/19 17:56 04/07/19 10:16 Roxicodone - PO 10 mg Q4H PRN Administration PAIN LEVEL 6-10 Polyethylene Glycol 17 gm 04/04/19 10:00 04/07/19 10:57 Miralax (For Daily Use) - PO Not Given DAILY PB Potassium Chloride 40 meq 04/07/19 15:00 K-Dur - PO 04/07/19 15:01 ONCE ONE Home Medications Medication Instructions Recorded Glipizide [Glucotrol -] 5 mg PO DAILY 12/04/16 Albuterol Sulfate Inhaler - 2 inh PO Q4H PRN 01/01/17 [Ventolin HFA Inhaler -] Atorvastatin Ca [Lipitor] 40 mg PO HS 01/01/17 Gabapentin [Neurontin -] 800 mg PO TID 01/01/17 Albuterol 0.083% Nebulizer Kaya 1 puff IH PRN PRN 04/02/19 [Ventolin 0.083% Nebulizer Soln -] Sitagliptin Phosphate [Januvia] 100 mg PO DAILY 04/02/19 Varenicline Tartrate [Chantix] 1 tab PO DAILY 04/02/19 ASSESSMENT AND PLAN: 48 year old male with history of DM 2, HLD, Hx Urethral stricture (s/p multiple cystocopies and dilatations) admitted to medicine service with severe sepsis s/ p cystoscopy, attempted stricture dilatation, with conversion to suprapubic cystostomy. 1. Severe Sepsis secondary to complicated UTI with Urethral Stricture - appears to be resolved s/p suprapubic cystostomy after failed stricture dilatation on cystoscopy Intermittent fevers appear to have resolved Lactate levels normalized. Blood Cx negative Urine Cx - yeast like organism. CT A/P - shows extensive atelectasis, hepatomegaly, suprapubic cath in place, no clear leakage Meropenem held due to persistent fevers and mild rash on torso. ID subsequently recommended change in Abx to Aztreonam and Vancomycin, last dose 04/05. Patient declines further Abx therapy since he developed fever after receiving doses of the new abx as he feels the fever to be Abx related. ID aware. Discussed with Dr. Sheppard who cleared patient for discharge off Abx with out-patient follow up. Urology follow up. 2. DUY, likely sec to obstructive uropathy and sepsis - resolved with IV hydration. 3. DM 2 - maintained on insulin sliding scale. Glipizide, Januvia to resume on discharge. 4. HLD - on Statin. 5. Hypokalemia - Repleted. 6. Thrombocytopenia - likely consumptive due to fevers/sepsis. Resolved. 7. Elevated Transaminases - likely sec to Abx therapy. Improving. Medically stable. Discharge off Abx as per ID with close urology and ID out- patient follow up.
[2019-04-07] MEDS ORDERED: POTASSIUM CHLORIDE TABS 20 MEQ TABLET.ER (FP) PO ONE (15:00)
--- NOTE | 2019-04-07 15:29 | DS ---
Physical Exam: SUBJECTIVE: Patient seen and examined. No acute events overnight. Denies fevers , chills, nausea or vomiting. OBJECTIVE: Vital Signs Period Temp Pulse Resp BP Sys/Dye Pulse Ox Last 24 Hr 98.5 F 79-81 20-20 121-123/61-73 PHYSICAL EXAM GENERAL: The patient is awake, alert, and fully oriented. Appears to be in moderate pain. HEAD: Normal with no signs of trauma. EYES: PERRL, extraocular movements intact, sclera anicteric, conjunctiva clear. No ptosis. ENT: Ears normal, nares patent, oropharynx clear without exudates, moist mucous membranes. NECK: Trachea midline, full range of motion, supple. LUNGS: Breath sounds equal, clear to auscultation bilaterally, no wheezes, no crackles, no accessory muscle use. HEART: Tachycardic, S1, S2 without murmur, rub or gallop. ABDOMEN: Mild tenderness in suprapubic and lower abdomen, improving. Dressing in place over surgical wounds. No purulent discharge or bleeding. Scrotal swelling and edema decreased. EXTREMITIES: 2+ pulses, warm, well-perfused, no edema. NEUROLOGICAL: Cranial nerves II through XII grossly intact. Normal speech, gait not observed. PSYCH: Normal mood, normal affect. SKIN: Warm, dry, normal turgor. Mild diffuse rash on back improving. LABS Laboratory Results - last 24 hr CBC, BMP 04/07/19 09:05 04/07/19 09:05 HOSPITAL COURSE: Date of Admission:04/01/19 Mr. Oscar is a 48M w/ PMH of DM, urethral stricture (s/p multiple cystocopies and dilatations) who was admitted to medicine service with severe sepsis s/p cystoscopy, attempted stricture dilatation, with conversion to suprapubic cystostomy. CT of his abdomen did not reveal ay acute intraabdominal pathology. Pt was treated with meropenem 1gm QH for 3 days. While on meropenem, he developed a diffuse rash on his back and intermittent nocturnal fevers. His meropenem was d/c'ed per ID on 04/05/19 (due to concern for possible allergic reaction) and switched to aztreonam and vancomycin. Pt refused to take new antibiotics since he developed fever after receiving doses of previous antibiotics and feels they would give him new fevers again. Pt remained afebrile for 48 hours and diffuse rash improved. Pt's leukocytosis and lactic acid normalized, vitals stable, and clinically stable. ID (Dr. Sheppard) was made aware of pt refusal of antibiotics. He was cleared by ID and urology (Dr. Fowler) to be discharged without antibiotics and recommended close follow up with urology and ID. Imaging: CTAP (04/02): No fluid collection suspicious of abscess or hematoma CXR: BL congestive and infiltrative changes, d/c fluids UA: 1+ glucose, 1+ ketones, 2+ blood, 1+ LE Date of Discharge: 04/07/19 Minutes to complete discharge: 45 Discharge Summary Problems reviewed: Yes Reason For Visit: URETHRAL STRICTURE, MALE Condition: Stable - Instructions Diet, Activity, Other Instructions: You were admitted to the hospital and underwent a cystoscopy and cystotomy ( surgeries on your bladder) by your Urologist, Dr. Fowler. After your surgery , you were found to have an infection in your urine. We treated you with antibiotics. Please resume all home medications as prescribed. You may take Tylenol or Motrin as needed for pain. Please follow up with your Urologist, Dr. Fowler, in 1-3 days. Please follow up with the infectious disease doctor, Dr. Sheppard within 1 week. Please follow up with your primary care provider in one week. You would need repeat blood work, CBC and BMP in 3 days. Return to the emergency department if you experience any fevers, chills, abdominal pain, urinary symptoms or any other symptoms. Referrals: [facility] [Provider Group] Zev Sehppard MD [Staff Physician] - Elayne Fowler MD [Staff Physician] - Disposition: HOME - Home Medications Comprehensive Discharge Medication List: Ambulatory Orders Glipizide [Glucotrol -] 5 mg PO DAILY 12/04/16 Albuterol Sulfate Inhaler - [Ventolin HFA Inhaler -] 2 inh PO Q4H PRN 01/01/17 Atorvastatin Ca [Lipitor] 40 mg PO HS 01/01/17 Gabapentin [Neurontin -] 800 mg PO TID 01/01/17 Albuterol 0.083% Nebulizer Kaya [Ventolin 0.083% Nebulizer Soln -] 1 puff IH PRN PRN 04/02/19 Sitagliptin Phosphate [Januvia] 100 mg PO DAILY 04/02/19 Varenicline Tartrate [Chantix] 1 tab PO DAILY 04/02/19 This patient is new to me today: No Emergency Visit: No Critical Care patient: No - Discharge Referral Referred to [facility] Med P.C.: No ATTENDING PHYSICIAN STATEMENT I saw and evaluated the patient. I reviewed the resident's note and discussed the case with the resident. I agree with the resident's findings and plan as documented. SUBJECTIVE: OBJECTIVE: ASSESSMENT AND PLAN:
== END 2019-04-07 14:33 | disposition home or self-care (01) | DRG 710 ==
LOC: JASU-SURG 10:38 → JASUSAT 10:38 → J6S 17:15
PROVIDERS: ADMIT Urology
PROC: 0TJ Urinary System, Inspection (ICD-10-PCS; 2019-03-31)
PROC: 0T1B0ZD Bypass Bladder to Cutaneous, Open Approach (ICD-10-PCS; principal; 2019-04-01 12:00)
DX: A41.9 Sepsis, unspecified organism (principal); N39.0 Urinary tract infection, site not specified; N35.919 Unspecified urethral stricture, male, unspecified site; F17.210 Nicotine dependence, cigarettes, uncomplicated; R00.0 Tachycardia, unspecified; R61 Generalized hyperhidrosis; N13.9 Obstructive and reflux uropathy, unspecified; R10.9 Unspecified abdominal pain; D72.829 Elevated white blood cell count, unspecified; R53.83 Other fatigue; J98.11 Atelectasis; E11.9 Type 2 diabetes mellitus without complications; E87.6 Hypokalemia; D69.6 Thrombocytopenia, unspecified; I95.9 Hypotension, unspecified; Z93.59 Other cystostomy status; N17.9 Acute kidney failure, unspecified; R74.0 Nonspecific elevation of levels of transaminase and lactic acid dehydrogenase [LDH]; N32.0 Bladder-neck obstruction
CPT/HCPCS: 36415; 71045-TC-FY; 74176-TC; 76000-TC-FY; 76705-TC; 80048; 80053; 80074; 81003; 82962; 83605; 83735; 84100; 85025; 85027; 87040; 87077; 87086; 94010; 94760; J0131; J1644; J7030

== ENCOUNTER 2019-05-13 09:26 | Day surgery (SDC) | payer OTHER ==
[2019-05-13 09:52] LABS: INR 0.98 (0.83-1.09); PROTHROMBIN TIME (PATIENT) 11.6 SEC (9.7-13.0)
[2019-05-13 09:55] LABS: ACTIVATED PTT 50.4 SECONDS (25.2-36.5)
== END 2019-05-13 11:30 | disposition home or self-care (01) ==
LOC: JASU-SURG 09:26
PROVIDERS: ATTEND Urology
DX: Z53.8 Procedure and treatment not carried out for other reasons (principal)
CPT/HCPCS: 36415; 82947; 84132; 85610; 85730

== ENCOUNTER 2019-07-01 07:12 | Day surgery (SDC) | payer OTHER ==
[2019-07-01 07:55] VITALS: BMI 27.8
[2019-07-01] MEDS ORDERED: MIDAZOLAM HCL 2 MG/2 ML SINGLE DOSE VIAL ONE (08:39)
[2019-07-01] MEDS ORDERED: ceFAZolin SODIUM 1 GM VIAL ONE (08:43)
[2019-07-01] MEDS ORDERED: DEXAMETHASONE SOD PHOSPHATE 4 MG/1 ML VIAL ONE (08:43)
[2019-07-01] MEDS ORDERED: LIDOCAINE HCL/PF 2% SDV 5ML VIAL ONE (08:43)
[2019-07-01] MEDS ORDERED: PROPOFOL 20 ML ONE (09:41)
[2019-07-01] MEDS ORDERED: IOHEXOL 300 MG/ML INFUS..BTL IV ONE (09:52)
[2019-07-01] MEDS ORDERED: EPHEDRINE SULFATE/0.9% NACL/PF 50 MG/10 ML SYRINGE NR ONE (10:01)
--- NOTE | 2019-07-01 10:40 | OP ---
Operative Note - Note: Operative Date: 07/01/19 Pre-Operative Diagnosis: urethral stricture disease, suprapubic cysostomy Operation: cysto, retrograde urethrogram, oiu with d/c of suprapubic gage and repair of sp-tract Post-Operative Diagnosis: Same as Pre-op Surgeon: Chele Fry Anesthesia: General Specimens Removed: urine Estimated Blood Loss (mls): 0 Drains & Tubes with Location: 20f 20cc gage Drains, Volume Out (mls): 0 Blood Volume Replaced (mls): 0 Fluid Volume Replaced (mls): 0 Operative Report Dictated: Yes
[2019-07-01] MEDS ORDERED: ONDANSETRON 4 MG/2 ML VIAL IVPUSH PRN (10:51)
[2019-07-01] MEDS ORDERED: LACTATED RINGERS SOLUTION 1,000 ML IV SCH (11:00)
--- NOTE | 2019-07-01 11:12 | HP ---
DATE OF ADMISSION: 07/01/2019 HISTORY OF PRESENT ILLNESS: Patient is a 48-year-old male with history of severe urethral stricture disease. He has had a suprapubic tube placed for the past 6 months. Multiple attempts at placement of a Plasencia have been unsuccessful due to the length of the stricture and the multiple false passages. PAST MEDICAL HISTORY: Patient does have history of chronic low back pain. He is status post back surgery and a nerve stimulator. He has history of hepatitis C. ALLERGIES: He is allergic to PENICILLIN, SULFA and AMOXICILLIN. SOCIAL HISTORY: He denies ethanolism or tobacco at present. MEDICATIONS: He is on metformin, glyburide, Percocet and gabapentin. PHYSICAL EXAMINATION: Chest: Physical exam revealed a normal chest. Heart: Regular rhythm. Abdomen: Soft. He has a suprapubic tube that is patent. The wound is clean. Genitourinary: Genitalia are atraumatic. Circumcised. Tests are normal in size and consistency. Prostate is 2+, smooth, benign, nontender. Extremities: Revealed full range of motion with no cyanosis, clubbing or edema. IMPRESSION: 1. At present is urethral stricture disease. 2. History of suprapubic tube drainage. PLAN: The plan is to undergo a ureteroscopic x-ray including a retrograde urethrogram, a flexible suprapubic cystoscopy and a possible optical internal urethrotomy with placement of a urethral Plasencia and closure of suprapubic tract. This was explained to the patient and he agrees. Osman [id number]
--- NOTE | 2019-07-01 11:30 | OP ---
DATE OF OPERATION: PREOPERATIVE DIAGNOSES: 1. Urethral stricture disease. 2. Recurrent urinary tract infections. 3. Status post suprapubic cystostotomy. OPERATIVE PROCEDURE: 1. Retrograde urethrogram. 2. Suprapubic flexible cystoscopy. 3. Cystoscopy per urethra with optical internal urethrotomy. 4. Placement of a urethral Plasencia. 5. Repair of suprapubic tract. ANESTHESIA: General. PROCEDURE: Under above-stated anesthesia, patient was prepped and draped in the usual sterile manner. He was placed in the supine position with some lateral positioning. A retrograde urethrogram was performed. This revealed a normal anterior urethra. Prostatic urethra was strictured to the prostatic fossa. There was a tail appearance of the posterior urethra. A flexible cystoscope was introduced per suprapubic tract. The bladder revealed grade 2 trabeculation. There was generalized hyperemia. No lesions were noted. No calculi were seen. Attempt at passage of the flexible ureteroscope into the internal meatus was unsuccessful; therefore, an optical urethrotome was placed after the patient was reprepped and draped and placed in the dorsal lithotomy position. Cystoscopy revealed a normal urethra. Prostatic urethra was completely closed. A Glidewire was passed through the strictured area. X-rays confirmed good position of the Glidewire within the bladder. A cold knife urethrotome was inserted. The stricture was cut at the 12 o'clock position. No extravasation or bleeding was noted. The bladder was entered. Again no lesions were seen. A 20-Romanian Plasencia was left in the urethra. The scope was removed. The suprapubic tube was also removed. The tract was excised to expose fresh tissue. The tract was closed with 2 layers. The first layer was 3-0 Vicryl suture ligatures. The second layer was 2-0 silk mattresses. No active bleeding was noted. The patient tolerated the procedure well. He returned to the recovery room in good condition. Osman [id number]
[2019-07-01 12:05] VITALS: TEMP 97.7
[2019-07-01 13:26] VITALS: BP 141/89; PULSE 78
== END 2019-07-01 13:49 | disposition home or self-care (01) ==
LOC: JASU-SURG 07:12
PROVIDERS: ATTEND Urology
PROC: 0T9B80Z Drainage of Bladder with Drainage Device, Via Natural or Artificial Opening Endoscopic (ICD-10-PCS; 2019-07-01)
PROC: 0TND8ZZ Release Urethra, Via Natural or Artificial Opening Endoscopic (ICD-10-PCS; principal; 2019-07-01 09:00)
DX: N35.919 Unspecified urethral stricture, male, unspecified site (principal); N32.89 Other specified disorders of bladder; E11.9 Type 2 diabetes mellitus without complications; J45.909 Unspecified asthma, uncomplicated; Z79.84 Long term (current) use of oral hypoglycemic drugs
CPT/HCPCS: 76000-TC-FY; 82962; 94760

== ENCOUNTER 2019-07-21 09:20 | Emergency (ER) | payer OTHER ==
[2019-07-21 09:32] VITALS: BP 140/82; PULSE 80; TEMP 98.2; BMI 27.8
--- NOTE | 2019-07-21 10:02 | PDOC ---
History of Present Illness - General Chief Complaint: Wound Stated Complaint: POST OP WOUND PAIN/ABDOMIMNAL Time Seen by Provider: 07/21/19 09:51 History Source: Patient Exam Limitations: No Limitations - History of Present Illness Initial Comments: 07/21/19 09:57 48y M hx of urethral strictures sp multiple dilations, sp gage catheter removal , suprapubic cath removal 3 weeks ago presents with a small tender ball next to the area of his suprapubic cath region. Patient states that the sensation he feels is a, burning/itching sensation that has been there for the last 3 weeks . States that he has not gone to follow-up or come to the ED due to not having been able to secure babysitting services . the pt denie sany fever/chills, n/v, erythema, discharge, dysuria, back pain, abd pain. Pt notes that he was told there were dissolvable sutures, but the sutures are still present. Urology: Zenaida/Lisandra Past History - Past Medical History Allergies/Adverse Reactions: Allergies Allergy/AdvReac Type Severity Reaction Status Date / Time strawberry Allergy Severe Hives Verified 07/21/19 09:27 tomato Allergy Severe Hives Verified 07/21/19 09:27 sulfamethoxazole Allergy Intermediate BLISTER Verified 07/21/19 09:27 amoxicillin Allergy Hives Verified 07/21/19 09:27 Penicillins Allergy Hives Verified 07/21/19 09:27 Home Medications: Ambulatory Orders Glipizide [Glucotrol -] 5 mg PO DAILY 12/04/16 Albuterol Sulfate Inhaler - [Ventolin HFA Inhaler -] 2 inh PO Q4H PRN 01/01/17 Gabapentin [Neurontin -] 800 mg PO TID 01/01/17 Anemia: No Asthma: Yes (NO RECENT ATTACK) Cancer: No Cardiac Disorders: No CVA: No COPD: No CHF: No Dementia: No Diabetes: Yes (NIDDM) GI Disorders: Yes (ACID REFLUX) Disorders: No HTN: No Hypercholesterolemia: Yes Liver Disease: No Seizures: No Thyroid Disease: No - Surgical History Abdominal Surgery: No Appendectomy: No Cardiac Surgery: No (spinal cord stimulator inserted 05/29) Cholecystectomy: No Lung Surgery: No Neurologic Surgery: Yes (BACK S2007) Orthopedic Surgery: No - Immunization History Immunization Up to Date: Yes - Psycho Social/Smoking Cessation Hx Smoking History: Never smoked Have you smoked in the past 12 months: Yes Number of Cigarettes Smoked Daily: 5 If you are a former smoker, when did you quit?: 5 Cigars Per Day: 0 Information on smoking cessation initiated: No 'Breaking Loose' booklet given: 07/01/19 Hx Alcohol Use: No Drug/Substance Use Hx: No Substance Use Type: None Hx Substance Use Treatment: No Review of Systems - Review of Systems Able to Perform ROS?: Yes Comments:: 07/21/19 09:59 Constitutional - no reported Fever, Chills, Respiratory: no reported cough, sob, hemoptysis Cardiac: no reported chest pain, palpitations, light headedness, leg swelling Abd/GI: no reported abd pain, nausea, vomiting, blood per rectum, melena, diarrhea : no reported dysuria, frequency, discharge Musculskelatal - no reported back pain, joint swelling skin - +suprapubic burning sensation/ball no reported bruising, erythema, rash neurological: no reported headache, numbness, focal weakness, tingling, ataxia, hematologic: no reported easy bruising, easy bleeding *Physical Exam - Vital Signs Last Vital Signs Temp Pulse Resp BP Pulse Ox 98.2 F 80 16 140/82 100 07/21/19 09:28 07/21/19 09:28 07/21/19 09:28 07/21/19 09:28 07/21/19 09:28 - Physical Exam 07/21/19 10:01 GENERAL: The patient is awake, alert, and fully oriented, Nontoxic - in no acute distress. HEAD: Normocephalic, atraumatic. EYES: extraocular movements intact, sclera anicteric, conjunctiva clear. ENT: Normal voice, Moist mucous membranes. NECK: Normal range of motion, supple LUNGS: Breath sounds equal, clear to auscultation bilaterally. No wheezes, no rhonchi, no rales. HEART: Regular rate and rhythm, normal S1 and S2 without murmur, rub or gallop. ABDOMEN: Soft, suprapubic catheter site with 2 visible stitches with a small mass of scar tissue near the stitches without any erythema, induration, fluctuance. It is slightly tender to palpation. EXTREMITIES: Normal range of motion, no edema. NEUROLOGICAL: No facial assymetry, Normal speech, PSYCH: Normal mood, normal affect. SKIN: Warm, Dry, normal turgor, Medical Decision Making - Medical Decision Making 07/21/19 10:02 Will obtain an ultrasound to screen for an abscess Will discuss with Dr. Fry/Malcolm There are no clinical signs of infection including erythema, induration, fluctuance, crepitus, tenderness is also very localized to the mass. 07/21/19 10:36 there are no signs of a collection on bedside US will discuss with dr. fry anticipate outpatint fu with urology for suture removal and further evaluation 07/21/19 10:41 Case was discussed with Dr. Fowler and he will see him in the office now I discussed the physical exam findings, ancillary test results and final diagnoses with the patient. I answered all of the patient's questions. The patient was satisfied with the care received and felt comfortable with the discharge plan and treatment plan. The patient will call their primary care physician within 24 hours to arrange follow-up and will return to the Emergency Department with any new, persistent or worsening symptoms. Discharge - Discharge Information Problems reviewed: Yes Clinical Impression/Diagnosis: Healing of postoperative wound Condition: Stable Disposition: HOME - Admission No - Follow up/Referral Referrals: Elayne Fowler MD [Staff Physician] - - Patient Discharge Instructions Additional Instructions: Please proceed to Dr. Boston office now for further evaluation of your wound. He is expecting you now. Print Language: UPPER SORBIAN - Post Discharge Activity
== END 2019-07-21 11:15 | disposition home or self-care (01) ==
LOC: JER 09:20
PROC: BW40ZZZ Ultrasonography of Abdomen (ICD-10-PCS; principal; 2019-07-21)
DX: G89.18 Other acute postprocedural pain (principal); E11.9 Type 2 diabetes mellitus without complications; Z79.84 Long term (current) use of oral hypoglycemic drugs; E78.00 Pure hypercholesterolemia, unspecified; Z87.09 Personal history of other diseases of the respiratory system; Z87.448 Personal history of other diseases of urinary system; Z96.82 Presence of neurostimulator; Z98.890 Other specified postprocedural states; Z88.0 Allergy status to penicillin; Z88.2 Allergy status to sulfonamides; Z91.018 Allergy to other foods
CPT/HCPCS: 76705-TC; 99284-25